=== PATIENT | female | born 1935 | race Caucasian/White ===

== ENCOUNTER 2017-10-31 12:00 | Inpatient (IN) | payer MEDICARE ==
--- NOTE | 2017-10-22 11:17 | HP ---
AMENDED REPORT NOW INCLUDES COSIGNER DESIGNATION - ESIGNED BEFORE ADJUSTMENT HISTORY AND PHYSICAL: DATE OF SURGERY: 10/31/17 DATE OF OFFICE VISIT: 10/21/17 SURGEON: Samantha oTro MD * (DICTATED BY BUTCH MCGOVERN) PROCEDURE: Left total knee arthroplasty. CHIEF COMPLAINT: Left knee pain. HISTORY OF PRESENT ILLNESS: Ms. Lara is an 82-year-old female with complaints of left knee pain secondary to end-stage osteoarthritis. She failed conservative management and elected to proceed with a left total knee arthroplasty, which is scheduled for 10/31/[address] Toro. PAST MEDICAL HISTORY: Hypertension, coronary artery disease, peripheral vascular disease, GERD, and hypothyroidism. PAST SURGICAL HISTORY: CABG, 2010; partial thyroidectomy; hiatal hernia repair ; right knee arthroscopy; cholecystectomy; hysterectomy; tonsillectomy. CURRENT MEDICATIONS: 1. Cartia 180 mg daily. 2. Metoprolol 50 mg twice a day. 3. Lisinopril 40 mg daily. 4. Levothyroxine 75 mcg daily. 5. Aspirin 81 mg daily. 6. Ibuprofen 200 mg as needed. 7. Omeprazole 40 mg twice a day. 8. 2 tabs every day. 9. Baclofen 10 mg 2 tabs q.h.s. 10. Multivitamin. 11. Fluticasone nasal spray. 12. Benadryl Allergy as needed. ALLERGIES: To CECLOR and AZITHROMYCIN. FAMILY HISTORY: Coronary artery disease, cancer, and hypertension. SOCIAL HISTORY: She is an 82-year-old female. She lives alone. She does not smoke or use drugs. She uses alcohol rarely. REVIEW OF SYSTEMS: A complete 14-point review of systems was reviewed with patient, it was positive for hypothyroidism, GERD, and some occasional palpitation. She denies history of DVT, PE, hepatitis, HIV, or anesthesia problems. PHYSICAL EXAMINATION GENERAL: She is well-developed, well-nourished, in no acute distress. VITAL SIGNS: She stands 5 feet 1 inch tall, weighs 165 pounds. Her blood pressure is 126/76, her heart rate is 62. HEENT: Normocephalic and atraumatic. NECK: Supple. No palpable lymph nodes. PULMONARY: Lungs are clear to auscultation bilaterally. CARDIO: Regular rate and rhythm. Strong S1 and S2. ABDOMEN: Soft, nontender, and nondistended. NEUROLOGICAL: She is alert and oriented x3. Cranial nerves II through XII are intact. MUSCULOSKELETAL: Left lower extremity, the skin is intact. There are no open wounds or abrasions. There is some moderate joint effusion. There is a varus deformity of the left knee. Range of motion is 15 to 110 degrees of flexion with patellofemoral crepitus. Tenderness over the medial and lateral joint line. 2+ dorsalis pedis pulses. She has intact sensation in her lower extremities. Muscle group strengths are intact at 5/5. ASSESSMENT AND PLAN: Ms. Lara is an 82-year-old female with end-stage osteoarthritis of her left knee. She has failed conservative management and elected to proceed with a left total knee arthroplasty which is scheduled for with Dr. Toro. Dr. Toro discussed the risks and benefits of the surgery at today's visit and all of her questions were answered. She will follow up with Dr. Toro in 2 weeks after the surgery. BUTCH MCGOVERN [id number]/[facility] #: [id number] BERYL
--- NOTE | 2017-12-16 21:55 | HP ---
HISTORY AND PHYSICAL: DATE OF ADMISSION/SURGERY: 12/27/17 DATE OF OFFICE VISIT: 12/16/17 ATTENDING SURGEON: Samantha Toro MD * (DICTATED BY BUTCH MCGOVERN) PROCEDURE: Left total knee arthroplasty. CHIEF COMPLAINT: Left knee pain. HISTORY OF PRESENT ILLNESS: Ms. Lara is an 82-year-old female with complaints of left knee pain secondary to end-stage osteoarthritis. She has failed conservative treatment and elected to proceed with a left total knee arthroplasty, which is scheduled for 12/27/[address] Toro. PAST MEDICAL HISTORY: Hypertension, AFib/aflutter, coronary artery disease, GERD, macular degeneration, hypothyroidism. PAST SURGICAL HISTORY: CABG, cholecystectomy, tubal ligation, hysterectomy, right knee arthroscopy, hernia surgery, and partial thyroidectomy. CURRENT MEDICATIONS: 1. Iron. 2. Cartia 180 mg daily. 3. Metoprolol 50 mg twice daily. 4. Lisinopril 40 mg daily. 5. Levothyroxine 75 mcg daily. 6. Aspirin 81 mg daily. 7. Ibuprofen as needed. 8. Omeprazole 40 mg twice a day. 9. . 10. Baclofen. 11. Multivitamin. 12. Fluticasone nasal spray. 13. Benadryl Allergy as needed. ALLERGIES: To CECLOR and AZITHROMYCIN. FAMILY HISTORY: Esophageal cancer, hypertension, breast cancer, and heart disease. SOCIAL HISTORY: She is an 82-year-old female. She lives alone. She does not smoke or use drugs. She uses rare alcohol. REVIEW OF SYSTEMS: A complete 14-point review of systems was reviewed with the patient. It is positive for hypothyroidism, GERD, shortness of breath, and occasional palpitation. She denies history of DVT, PE, hepatitis, HIV, or anesthesia problems. PHYSICAL EXAMINATION GENERAL: She is well developed, well nourished, in no acute distress. VITAL SIGNS: She stands 60 inches tall, weighs 162 pounds. Blood pressure is 152/76 and heart rate 66. HEENT: Normocephalic, atraumatic. NECK: Supple. No palpable lymph nodes. PULMONARY: Lungs are clear to auscultation bilaterally. CARDIO: Regular rate and rhythm. Strong S1, S2. ABDOMEN: Soft, nontender, nondistended. NEUROLOGICAL: She is alert and oriented x3. MUSCULOSKELETAL: Left lower extremity, the skin is intact. There are no open wounds or abrasions. She has moderate joint effusion and some tenderness over the mediolateral joint line. Range of motion 10 to 120 degrees with patellofemoral crepitus. 2+ dorsalis pedis pulses. Intact sensation. Her lower extremity muscle group strengths are intact at 5/5. ASSESSMENT AND PLAN: Ms. Lara is an 82-year-old female with complaints of left knee pain secondary to end-stage osteoarthritis. She has failed conservative management and elected to proceed with a left total knee arthroplasty, which is scheduled for 12/27/[address] Toro discussed the risks and the benefits of the surgery at today's visit. All of her questions were answered. She will follow up in 2 weeks after the surgery with Dr. Toro. BUTCH MCGOVERN [id number]/[facility] #: [id number] BERYL
[2017-12-26] MEDS ORDERED: Buffered Lidocaine 0.9% SYRIN* 5 ML/SYR SYRINGE INTRADERM ONE (10:33)
[2017-12-26] MEDS ORDERED: Ondansetron TAB* 4 MG PO ONE (10:33)
[2017-12-27] MEDS ORDERED: Naloxone* 0.4 MG/ML 1 ML VIAL IV PRN (05:56)
[2017-12-27] MEDS ORDERED: PROCHLORPERAZINE INJ 5 MG/ML 2 ML VIAL IV PRN (05:56)
[2017-12-27] MEDS ORDERED: fentaNYL* 50 MCG/ML 2 ML VIAL (100 MCG VIAL) IV PRN (05:56)
[2017-12-27] MEDS ORDERED: DiMENhydriNATE IV* 50 MG/ML VIAL IV PUSH PRN (05:56)
[2017-12-27] MEDS ORDERED: Gabapentin CAP(*) 300 MG PO ONE (06:00)
[2017-12-27] MEDS ORDERED: Dexamethasone TAB* 4 MG PO ONE (06:00)
[2017-12-27] MEDS ORDERED: Famotidine IV* 10 MG/ML 2 ML (20 mg) IV ONE (06:00)
--- OUTSIDE RECORDS SUMMARY | 2017-12-27 08:21 | XMS REPORT ---
:1935 External Reference #:[id number] Author Organization [facility] Address [address] [place] [address] [place] [address] Phone [phone] Care Team Providers Name Role Phone Saida Diego PA Primary Care Physician Unavailable Payers Type Date Identification Numbers Payment Provider Subscriber Health Maintenance Effective: Policy Number: [place] Vince Sorto [place] [place] 06/24/2013 [id number] o Group Number: [id number] [address] [address] PayID: [id number] [place] [address] Problems Date Description Provider Status Onset: 10/04/2017 [...] Description Comments Marital Status 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 needed for pain Cartia XT 05/14/ Active Caps ER 24HR [...] Capsules 25mg 1 at Unknown 0000 night Iron / Active Tablets 28mg Unknown 0000 Bactrim DS 10/22/ Hx Tablets 800-160mg 6tabs take 1 Samantha 2018 - by mouth Cortez, 10/23/ twice a M.D. 2018 day for 3 days Diltiazem HCL ER / Hx Caps ER [...] Indications Ordering Provider Inj, Administered Injection Carson D. Regadenoson, 018 Kirill Gillespie 0.1 MG Technetium TC Administered Injection Carson D. 99M 018 Kirill Gillespie Tetrofosmin, Per Unit Dose Up To 40 Millicuries Depomedrol Administered Injection Samantha 40MG 018 Kirill Toro Inj, Administered Injection Carson D. Regadenoson, 014 Kirill Gillespie 0.1 MG Technetium TC Administered Injection Carson D. 99M 014 Kirill Gillespie Tetrofosmin, Per Unit Dose Up To 40 Millicuries Vital Signs Date Vital Result Comment 12/16/2017 Height 60.75 inches 5'0.75" Weight 162.00 lb Heart Rate 66 /min BP Systolic Sitting 152 mmHg BP Diastolic Sitting 76 mmHg Respiratory Rate 16 /min Body Temperature 98.8 F Pain Level 4 BMI (Body Mass Index) 30.9 kg/m2 10/23/2017 Height 60.75 inches 5'0.75" Weight 162.00 [...] Color [place] Urine Appearance Cloudy Urine Specific [place] 1.016 1.010-1.030 Urine pH 6.0 5-9 Urine [...] JUN SORTO : [address]: Samantha Toro MD Acct: [id number] Unit: [id number] AGE: 82 Location: [facility] Re10/21/17 SEX: F Status: REG REF SPEC: [id number] KARUNA: 10/21/17-[address] [facility] [address]: Samantha Toro MD REQ: [id number] RECD: 10/21/17 STATUS: WOLF CLINE DR: Saida TORO _ SOURCE: URINE SPDESC: ORDERED: Urine Culture QUERIES: Urine Source: Clean Catch Procedure Result Reported Site Urine Culture Final 10/22/17- 1203 ML No Growth (<1,000 CFU/mL) * ML - Main Lab . END OF REPORT DEPARTMENT OF PATHOLOGY, [address] [place] [address] Sebastian Carvajal M.D. Director [facility] # [id number] 5 Reference Range and Interpretation: TnI (ng/mL) Interpretation Less Than 0.03 ng/mL Not supportive of diagnosis of VT 0.03 - 0.50 ng/mL Indeterminate: suggest serial studies if clinically indicated. Greater than 0.5 ng/mL Consistent with diagnosis of VT 6 Because ethnic data is not always [...] Procedures Date CPT Code Description Status 10/23/2017 19333 EKG Tracing & Interpretation Completed 10/18/2017 55113 Stress Test Completed 10/18/2017 13664 Myocardial Perfusion Imaging Tomographic (Spect) Completed Multiple Studies 10/04/2017 32777 Inject/Drain Joint/Bursa Major W/O US Completed 06/28/2017 66509 EKG Tracing & Interpretation Completed 07/04/2016 54946 EKG Tracing & Interpretation Completed 06/09/2015 97479 EKG Tracing & Interpretation Completed 04/01/2015 19279 Nerve Conduction 03-04 Studies Completed 04/01/2015 91899 Needle Electromyography Complete, Five Or More Muscles Completed Studied 08/01/2014 54827 ECHO Transthorasic Realtime 2D W Doppler & Color Flow Completed Hosp 08/01/2014 83377 EKG, Interpretation Only Completed 02/03/2014 Mammogram Completed 10/21/2013 07620 Stress Test Completed 10/21/2013 70808 Myocardial Perfusion Imaging Tomographic (Spect) Completed Multiple Studies 10/12/2013 12391 ECHO Transthoracic, Real-Time 2D With Doppler And Color Completed Flow 10/02/2013 55911 EKG Tracing & Interpretation Completed Encounters Type Date Location Provider CPT E/M Dx Office Visit 10/23/2017 [facility] Carson ConleyAlfa Gillespie, 39438 I25.10 9:30a Ruthie Porter.Yoko R94.31 I48.0 Z01.810 M17.12 Office Visit 10/04/2017 9:15a [facility] Samantha Toro M.D. 37242 M25.561 C.M.Malgorzata M25.562 M25.461 M25.462 M17.0 Office Visit 06/28/2017 12:00p [facility] Carson YaelAlfa Gillespie, 46095 I25.10 Ruthie Porter.Yoko I10 R94.31 Office Visit 07/04/2016 10:00a [facility] Carsonever Gillespie, 16167 I25.10 Ruthie Roy R94.31 Office Visit 06/09/2015 9:45a [facility] Carson Gillespie, 48619 I25.10 Ruthie Roy I10 R94.31 Office Visit 08/01/2014 7:09a [facility], Manuel Garsia 19849 786.52 Hospitalists Kirill Ervin 414.00 244.9 401.9 Office Visit 06/16/2014 11:15a [facility] Carson YaelAlfa Gillespie, 54024 414.01 Ruthie Roy 785.1 414.02 Office Visit 10/30/2013 9:00a [facility] Carsonever Gillespie, 98037 414.01 Ruthie Roy 785.1 414.02 Office Visit 10/02/2013 9:00a [facility] Carsonever Gillespie, 51072 401.1 Ruthie Roy 414.01 414.02 427.31 Plan of Care Future Appointment(s):01/10/2018 9:00 am - BUTCH Gomez at [facility]02/05/2018 10:45 am - Carson Gillespie M.D. at [facility]12/27/2017 10:30 am - Samantha Toro M.D. at [facility]12/16/2017 - Samantha Toro M.D.M25.562 Pain in left kneeFollow up:Follow up: 2 weeks after jhachqrK49.462 Effusion, left kneeM17.12 Unilateral primary osteoarthritis, left knee
[2017-12-27] MEDS ORDERED: Famotidine IV* 10 MG/ML 2 ML (20 mg) ONE (08:38)
[2017-12-27] MEDS ORDERED: Dexamethasone TAB* 4 MG ONE (08:39)
[2017-12-27] MEDS ORDERED: Tranexamic Acid 1,000 MG/10 ML SDV IV ONE (08:39)
[2017-12-27] MEDS ORDERED: Ondansetron ODT TAB* 4 MG ONE (08:39)
[2017-12-27] MEDS ORDERED: Gabapentin CAP(*) 300 MG ONE (08:39)
[2017-12-27] MEDS ORDERED: ceFAZolin 2 GM PREMIX (*) 2 GM/50 ML BAG IVPB ONE (08:40)
[2017-12-27] MEDS ORDERED: Buffered Lidocaine 0.9% SYRIN* 5 ML/SYR SYRINGE ONE (08:40)
[2017-12-27] MEDS ORDERED: KETAMINE HCL* 50 MG/ML 10 ML VIAL ONE (09:37)
[2017-12-27] MEDS ORDERED: fentaNYL* 50 MCG/ML 2 ML VIAL (100 MCG VIAL) ONE (09:37)
[2017-12-27] MEDS ORDERED: Midazolam* 1 MG/ML 5 ML VIAL (5 MG) ONE (09:38)
[2017-12-27] MEDS ORDERED: Propofol* 1,000 MG/100 ML BTL ONE (12:31)
[2017-12-27] MEDS ORDERED: Bupivacaine 0.5% PF 10 ML VIAL INJ ONE (12:31)
[2017-12-27] MEDS ORDERED: Phenylephrine INJ* 10 MG/ML 1 ML VIAL (10 MG) ONE (12:31)
[2017-12-27] MEDS ORDERED: Bisacodyl SUPP* 10 MG SUPP PR PRN (12:39)
[2017-12-27] MEDS ORDERED: Magnesium Hydroxide LIQ* 30 ML UDC PO PRN (12:39)
[2017-12-27] MEDS ORDERED: Morphine VIAL* 4 MG/ML VIAL (1 ml vial) IV PRN (12:39)
[2017-12-27] MEDS ORDERED: Polyethylene Glycol 3350* 17 GM PACKET PO PRN (12:39)
[2017-12-27] MEDS ORDERED: Ondansetron TAB* 4 MG PO PRN (12:39)
[2017-12-27] MEDS ORDERED: oxyCODONE/Acetamin 5/325 MG* TAB PO PRN ×2 (12:39)
[2017-12-27] MEDS ORDERED: diPHENhydraMINE IV* 50 MG/ML 1 ml VIAL (BENADRYL) IV PRN (12:39)
[2017-12-27] MEDS ORDERED: oxyCODONE TAB* 5 MG TAB PO PRN (12:39)
[2017-12-27] MEDS ORDERED: Ondansetron ODT TAB* 4 MG PO PRN (12:39)
[2017-12-27] MEDS ORDERED: Morphine VIAL* 10 MG/ML 1 ML VIAL ONE (13:04)
[2017-12-27] MEDS: Morphine INJ* 2 MG/ML 1 ML CARPUJECT IV PRN ×3 (13:06→13:41)
--- NOTE | 2017-12-27 13:12 | RAD ---
Indication: Postop LEFT total knee replacement. Comparison: October 04, 2017 Technique: LEFT knee: AP and crosstable lateral views. Report: Total knee prosthesis in place. No evidence for periprosthetic fracture. Normal articular alignment. Intra-articular and soft tissue plane edema and gas anteriorly. IMPRESSION: #. Unremarkable immediate postop appearance following LEFT total knee replacement.
[2017-12-27] MEDS ORDERED: traMADol TAB* 50 MG ONE (13:52)
[2017-12-27] MEDS ORDERED: traMADol TAB* 50 MG PO PRN (14:03)
[2017-12-27] MEDS ORDERED: DiMENhydriNATE IV* 50 MG/ML VIAL ONE (14:07)
[2017-12-27] MEDS: Cyclobenzaprine TAB* 10 MG PO PRN (14:49)
[2017-12-27] MEDS: HYDROcodone/ACETAMIN 5-325 MG* 1 TAB PO PRN ×3 (15:53→23:59)
[2017-12-27] MEDS ORDERED: Warfarin TAB(*) 6 MG PO ONE (17:00)
[2017-12-27] MEDS: ceFAZolin 1 GM in Dextrose (*) 1 GM/50 ML BAG IVPB SCH (19:24)
[2017-12-27] MEDS: Metoprolol Tartrate TAB* 50 mg PO SCH (20:18)
[2017-12-27] MEDS: Magnesium Hydroxide LIQ* 30 ML UDC PO SCH (20:18)
[2017-12-27] MEDS: Docusate CAP* 100 MG PO SCH (20:18)
[2017-12-27] MEDS ORDERED: Omeprazole CAP* 20 MG PO SCH (21:00)
[2017-12-27] MEDS ORDERED: Metoprolol Tartrate TAB* 50 mg PO SCH (21:00)
--- NOTE | 2017-12-27 21:25 | CONS ---
CC: BUTCH Hogue; Samantha Toro MD * CONSULTATION REPORT: DATE OF CONSULT: 12/27/17 PRIMARY CARE PROVIDER: BUTCH Hogue PHYSICIAN REQUESTING CONSULTATION: Samantha Toro MD ATTENDING PHYSICIAN: Skye Moser MD (dictated by Claudia Rajan NP). CHIEF COMPLAINT: Left knee pain. REASON FOR CONSULT: Co-medical management in a patient with a history of hypertension; paroxysmal atrial fibrillation; peripheral vascular disease; coronary artery disease, status post coronary artery bypass graft. HISTORY OF PRESENT ILLNESS: Ms. Lara is an 82-year-old female with past medical history significant for hypertension; paroxysmal atrial fibrillation; coronary artery disease, status post coronary artery bypass graft; GERD; macular degeneration; hypothyroidism; osteoarthritis; peripheral vascular disease; anemia; diverticulitis; and end-stage osteoarthritis who presented to the hospital for an elective left total knee arthroplasty with Dr. Samantha Toro today. The patient states that she has been in her usual state of health other than left knee pain prior to coming to the hospital. She denies any recent fevers, chills, chest pain, shortness of breath, nausea, vomiting, or diarrhea. She states she has recently had some dizziness and was diagnosed with anemia and that has resolved. The patient had failed conservative treatment for her left knee and again underwent left total knee arthroplasty with Dr. Toro today. The hospitalists were asked to assist with co-medical management of this patient during her hospitalization. PAST MEDICAL HISTORY: 1. Hypertension. 2. Paroxysmal atrial fibrillation. 3. Coronary artery disease. 4. GERD. 5. Macular degeneration. 6. Glaucoma. 7. Hypothyroidism. 8. Osteoarthritis. 9. Peripheral vascular disease. 10. Anemia. 11. Diverticulosis. PAST SURGICAL HISTORY: 1. Status post coronary artery bypass graft. 2. Status post cholecystectomy. 3. Status post tubal ligation. 4. Status post total abdominal hysterectomy with bilateral salpingo- oophorectomy. 5. Status post right total knee arthroscopy. 6. Status post hernia repair. 7. Status post Danilo fundoplication. 8. Status post right lobe thyroidectomy. HOME MEDICATIONS: Include: 1. Feosol 325 mg oral daily. 2. Cartia XT 180 mg oral daily. 3. Metoprolol tartrate 50 mg oral twice daily. 4. Lisinopril 40 mg oral daily. 5. Levothyroxine 75 mcg oral daily. 6. Aspirin 81 mg oral daily. 7. Ibuprofen 400 to 800 mg oral as needed for pain, the patient has not taken since 10/23/17. 8. Omeprazole 40 mg oral twice daily. 9. Savision 2 tablets oral daily. 10. Baclofen 20 mg oral daily at bedtime. 11. Multivitamin 1 tablet oral daily. 12. Fluticasone nasal spray 50 mcg/ACT 2 sprays to each nares daily. 13. Benadryl Allergy 25 mg oral daily at bedtime as needed. ALLERGIES: 1. CECLOR, unknown reaction. 2. AZITHROMYCIN, shortness of breath and heart arrhythmia. 3. SULFA, diarrhea and heart arrhythmia. FAMILY HISTORY: The patient's father passed at age 56 from esophageal cancer. She had a brother who passed at age 64 from esophageal cancer, a brother passing at age 72 from esophageal and lung cancer, and a sister who passed at 74 from esophageal cancer. The patient's mother had a history of breast cancer and heart disease and passed at age 72 secondary to pneumonia. The patient had a sister who passed from breast cancer at age 57. She has a son with history of an CT. SOCIAL HISTORY: The patient is a former smoker, quitting over 30 years ago. She states that she did not have a long smoking history prior to that. She rarely drinks alcohol. Denies recreational drug use. She lives alone. Her daughter, Cornelia Mccauley, will be her surrogate decision maker in the event she is unable to make decisions for herself. REVIEW OF SYSTEMS: I performed an 11-point review of systems. All the pertinent positive and negatives are mentioned in the history of present illness. The remaining review of systems are negative. PHYSICAL EXAM: Vital Signs: Temperature 98.2, heart rate 84, respiratory rate 16, O2 sat 96% on room air, blood pressure 158/83. General Appearance: The patient is alert, pleasant, and appears to be in no acute distress. HEENT: Normocephalic, atraumatic. Pupils are equal and reactive to light. Extraocular movements are intact. Respiratory: There is no accessory muscle use. The lungs are clear to auscultation bilaterally. Cardiovascular: Regular rate and rhythm. S1, S2 present. There are no murmurs, rubs, or gallops heard. Abdomen: Soft, nontender, nondistended. There are bowel sounds present x4. Extremities: There is no lower extremity edema. DP and PT pulses are 2+ and symmetric. Musculoskeletal: There is no clubbing or cyanosis noted. The patient exhibits good strength in all extremities. Neurological: The patient is alert and oriented x4. Cranial nerves II through XII are grossly intact. Psychological: The patient is calm and cooperative. Skin: There are no rashes or abnormalities seen. The patient has a dressing to her left knee that is clean, dry and intact. DIAGNOSTIC STUDIES/LAB DATA: Preoperative labs from 11/26/17 show a white blood cell count of 12.2, hemoglobin 11.5, hematocrit 36, platelet count 401, 000. Labs from 12/17/17; sodium 138, potassium 5.1, chloride 100, CO2 of 29, BUN 7, creatinine 0.68. Urinalysis negative. IMPRESSION: Ms. Lara is an 82-year-old female with past medical history significant for hypertension, paroxysmal atrial fibrillation, coronary artery disease, gastroesophageal reflux disease, macular degeneration, hypothyroidism, osteoarthritis, peripheral vascular disease, anemia, diverticulosis and osteoarthritis, who presented to the hospital for an elective left total knee arthroplasty with Dr. Samantha Toro. ASSESSMENT/PLAN: 1. Status post left total knee arthroplasty. Postop day. Management will be per Orthopedic Surgery. The patient will be placed on a bowel regimen and have pain medications. She will have physical therapy and occupational therapy evaluations tomorrow. She has already gotten up to a chair. She will have her urinary catheter in place until the morning, at which time it will be removed. 2. Paroxysmal atrial fibrillation. The patient's heart rate is regular by auscultation at this time. She is not chronically anticoagulated for this. She will be continued on her home diltiazem and metoprolol. 3. History of coronary artery disease. The patient has a history of coronary artery bypass graft. She will be continued on her home metoprolol. Resume her aspirin with okay with Orthopedic Surgery. She is not currently on a statin. She is asymptomatic at this time. 4. Gastroesophageal reflux disease. The patient will be continued on her home omeprazole. 5. Macular degeneration and glaucoma. The patient will continue to follow with her dye reel operator helper. 6. Hypothyroidism. The patient will be continued on her home levothyroxine. Her last TSH was 2.32 on 11/21/17. 7. Anemia. We will continue to trend the patient's H and H. I suspect she will have acute blood loss anemia in addition to her iron-deficiency anemia. She will be continued on her home iron. 8. Hypertension. The patient is currently slightly hypertensive with systolic blood pressures in the 150s. She will be continued on her home diltiazem, metoprolol, and resume her lisinopril in the morning. 9. Fluids, electrolytes, and nutrition: The patient will be on a heart- healthy diet. 10. Code status: Full code. 11. DVT prophylaxis: The patient will have Lovenox bridged to warfarin and SCDs per Orthopedic Surgery. 12. Disposition: Inpatient with disposition per Orthopedic Surgery. TIME SPENT: Time for this consultation was approximately 60 minutes, greater than half of that was spent with the patient discussing medications, past medical history, the events leading up to her arrival today, and performing a physical examination. Case has been reviewed with the attending, Dr. Moser, who agrees with the plan of care. Reviewed by DONALD STEPHEN 12/30/17 1825 [id number]/[facility] #: [id number] BERYL
--- NOTE | 2017-12-28 02:00 | OP ---
OPERATIVE REPORT: DATE OF OPERATION: 12/27/17 DATE OF : 39 SURGEON: Samantha Toro MD CEMENTER MACHINE APPLICATOR: BUTCH Hilton Ms. did help throughout the procedure with preparation of the leg, wound retraction, manipul ation of the knee, and wound closure. ANESTHESIOLOGIST: Dr. Spencer. ANESTHESIA: Spinal. PRE-OP DIAGNOSIS: Severe end-stage degenerative osteoarthritis of the left knee joint with flexion c ontracture. POST-OP DIAGNOSIS: Severe end-stage degenerative osteoarthritis of the left knee joint with flexion contracture. OPERATIVE PROCEDURE: Left total knee arthroplasty. BRIEF HISTORY/INDICATION: Ms. Lara is an 82-year-old female with years of increasingly severe left knee pain. Radiographs showed severe [id number]-[id number] arthritis. The patient had developed a 20-degree flexion contracture. She failed conservative treatment with anti-inflammatories, pain medication, in traarticular injections, and physical therapy. Due to continued pain and decreased quality of life, she elected to undergo a left total knee arthroplasty. Informed consent was obtained from the patien t. She understood the risks of surgery included, but were not limited to bleeding, infection, damage to nearby structures, continued pain, need for further surgery, intraoperative fracture, nerve palsy , hardware failure or loosening, knee stiffness, loss of motion, stroke, heart attack, blood clot, an d . She wished to proceed. INTRAOPERATIVE FINDINGS: Intraoperatively, the patient was noted to have severe osteopenia. She had advanced arthritis with 20-degree flexion contracture and tight hamstrings. She had a severe varus deformity of the knee. There was tricompartmental full-thickness loss of cartilage in the knee. TOURNIQUET TIME: 47 minutes. COMPLICATIONS: None. SPECIMENS: Bone and cartilage from the left knee joint sent to Pathology. HARDWARE USED: This is cemented [employer] total knee arthroplasty hardware. Two packages of S implex bone cement were used. For the femur, a left size 5 left posterior stabilized Legion narrow f emoral component; for the tibia, a left size 3 left Francisca II tibial base plate; for the insert, a 9 mm posterior stabilized articular insert size 3-4; and for the patella, 32 mm 3-peg all-poly patella with 7.5 thickness. DESCRIPTION OF PROCEDURE: Ms. Lara was identified in the preanesthesia unit. Her left lower extrem ity was marked as the correct operative side. Informed consent was signed and placed in the chart. The patient was taken to the operating room and placed under spinal anesthesia. A Silver catheter was placed. Tourniquet was placed on the left thigh. Left lower extremity was prepped and draped in th e usual sterile fashion. Preop time-out was made to correctly identify the patient, side and site. Appropriate perioperative antibiotics were given within 1 hour of incision. Tourniquet was inflated and total tourniquet time for this procedure was 47 minutes. A 12 cm midline incision was made with a 10-blade and carried down to the extensor mechanism. A new 10-blade was us ed to make a standard medial parapatellar arthrotomy and the patella was subluxed laterally. Electro cautery was used to elevate soft tissue off the superomedial tibia to the mid sagittal plane. The kn ee was flexed up. The anterior horn of the lateral meniscus and ACL were sharply released. A drill was used to enter the distal femur. Intramedullary distal femoral cutting guide was pinned on the di stal femur. Oscillating saw was used to make the distal femoral cut and additional 2 mm were taken d ue to the chronic 20- degree flexion contracture. Next, the external rotation guide was pinned on th e distal femur. Distal femur was sized to a size 5. Size 5 multi-cutting jig was pinned on the dist al femur. Oscillating saw was used to make the appropriate 4 chamfer cuts. The PCL was completely r eleased. The tibia was subluxed anteriorly. Extramedullary tibial cutting guide was pinned on the pr oximal tibia. Oscillating saw was used to make the proximal tibial cut perpendicular to the laboratory mechanical technician al axis of the tibia. The bone was carefully removed. The knee was brought out into full extension. Spacer block had good fit with the knee in full extens ion. There was medial and lateral ligamentous balancing. Flexion and extension gaps were well balanc ed. Next, the knee was flexed up. Lamina heel seater was placed both medially and laterally. Any remai anselmo meniscus was carefully removed both medially and laterally using electrocautery. Curved osteoto me was used to remove any posterior osteophytes. Tibial tray and drop sandra were placed and once again confirmed a satisfactory tibial cut. A trial left 5 narrow femur was impacted on to the distal femur and had good fit. The box for the pos terior stabilized implant was prepared using a reamer and box cut osteotome. Size 3 tibial tray with a 9 mm insert trial was placed and the knee was taken through a range of motion. There was full ext ension to 130 degrees of flexion with good patellofemoral tracking. The patella was everted. 7 mm o f patellar bone and cartilage was carefully removed using an oscillating saw. The patella was sized to a size 32. Three pegs were drilled through the size 32 guide. Trial 32 patella was placed. The k nee was taken through a range of motion and there was satisfactory patellofemoral tracking. All trials were carefully removed. Tibia was subluxed anteriorly and sized to a size 3. Proximal ti eduard was prepared using a size 3 keel punch. All bony cut surfaces were copiously irrigated with ster ile saline and dried. Final implants were cemented into place starting with the tibia followed by th e femur and last the patella. A 9 mm insert trial was placed while the knee was brought out into ful l extension. The knee was copiously irrigated with sterile saline and tourniquet was turned down at 47 minutes. Electrocautery was used to obtain meticulous hemostasis. Once the cement had fully cure d, the insert trial was removed. Any excess cement was removed from around the capsule and hardware. Final insert chosen was a 9 mm posterior stabilized articular insert Francisca II size 3-4. This was locked into position on the tibial tray. Stability of the insert was checked and rechecked and note d to be stable. The knee was once again copiously irrigated with sterile saline. The extensor mechanism was closed u sing interrupted #1 Vicryl. The rest of the incision was closed in a layered fashion using 0 and 2-0 Vicryls. Skin was closed using running 3-0 nylon suture. Sterile Xeroform, 4x4s, and Webril were u sed to cover the incision. Rod wrap and cold pack were placed over this. The patient's anesthesia w as reversed without difficulty. She was taken to the PACU in stable condition. Intended weightbearin g will be weightbearing as tolerated. Intended DVT prophylaxis will be Coumadin with a Lovenox bridg e. [id number]/[facility] #: [id number]
[2017-12-28] MEDS: Cyclobenzaprine TAB* 10 MG PO PRN ×2 (02:39→12:25)
[2017-12-28] MEDS: ceFAZolin 1 GM in Dextrose (*) 1 GM/50 ML BAG IVPB SCH ×2 (02:40→10:17)
[2017-12-28 05:49] LABS: Hematocrit 35 % (35-47); Hemoglobin 11.2 g/dl (12.0-16.0); Mean Platelet Volume 7.7 um3 (7.4-10.4); Platelet Count 350 10^3/ul (150-450)
[2017-12-28] MEDS: Levothyroxine TAB* 75 MCG TAB PO SCH (05:52)
[2017-12-28] MEDS: HYDROcodone/ACETAMIN 5-325 MG* 1 TAB PO PRN ×3 (06:02→17:14)
[2017-12-28 06:12] LABS: INR 2.64 (0.77-1.02)
[2017-12-28 06:20] LABS: EGFR Non-African American 130.7 (>60)
[2017-12-28] MEDS: Metoprolol Tartrate TAB* 50 mg PO SCH ×2 (08:46→21:49)
[2017-12-28] MEDS: Omeprazole CAP* 20 MG PO SCH ×2 (08:46→17:13)
[2017-12-28] MEDS: Ferrous Sulfate TAB* 325 MG PO SCH (08:46)
[2017-12-28] MEDS: Diltiazem CD CAP* 180 MG PO SCH (08:46)
[2017-12-28] MEDS: Docusate CAP* 100 MG PO SCH ×2 (08:46→21:49)
[2017-12-28] MEDS: Lisinopril TAB* 10 MG PO SCH (08:47)
[2017-12-28] MEDS: Fluticasone NASAL SPRAY 50MCG* 16 gm SPRAY BTL BOTH NARES SCH (08:47)
[2017-12-28] MEDS: [UNRECOGNIZED DRUG - OTHER] PO SCH (08:48)
[2017-12-28] MEDS: Magnesium Hydroxide LIQ* 30 ML UDC PO SCH ×2 (08:49→21:48)
[2017-12-28] MEDS ORDERED: Enoxaparin(*) 30 MG/0.3 ML SYR SUBCUT SCH (12:00)
--- NOTE | 2017-12-28 13:17 | PN ---
Progress Note - Progress Note Date of Service: 12/28/17 SOAP: Subjective: Pt is doing well. Pain controlled with oral pain meds. Progressing well with PT. Denies N/T, F/C, CP/SOB Objective: PE- 82 y/o WDWN F NAD, A&O x3 LLE- dressing c/d/i, calf soft NT, +DF/PF ankle, +2 Dp pulse, SILT distally Vital Signs Temp Pulse Resp BP Pulse Ox 98.0 F 84 16 143/72 90 12/28/17 07:40 12/28/17 07:40 12/28/17 12:25 12/28/17 07:40 12/28/17 09:00 Laboratory Results - last 24 hr 12/28/17 12/28/17 12/28/17 05:06 05:06 05:06 Hgb 11.2 L Hct 35 Plt Count 350 MPV 7.7 INR (Anticoag Therapy) 2.64 H Sodium 131 L Potassium 3.5 Chloride 96 L Carbon Dioxide 27 Anion Gap 8 BUN 5 L Creatinine 0.46 L Est GFR ( Amer) 158.2 Est GFR (Non-Af Amer) 130.7 BUN/Creatinine Ratio 10.9 Glucose 140 H Calcium 8.8 Assessment: POD1 S/P Left TKA Plan: WBAT LLE- cont PT/OT cont pain mgmt INR therapeutic- DC lovenox, hold coumadin tonight Possible DC to home saturday
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
[2017-12-29] MEDS: HYDROcodone/ACETAMIN 5-325 MG* 1 TAB PO PRN ×3 (03:12→18:59)
[2017-12-29 05:48] LABS: Hematocrit 35 % (35-47); Hemoglobin 11.4 g/dl (12.0-16.0); Mean Platelet Volume 7.5 um3 (7.4-10.4); Platelet Count 342 10^3/ul (150-450)
[2017-12-29 05:59] LABS: INR 1.48 (0.77-1.02)
[2017-12-29] MEDS: Levothyroxine TAB* 75 MCG TAB PO SCH (06:45)
[2017-12-29] MEDS: Lisinopril TAB* 10 MG PO SCH (08:45)
[2017-12-29] MEDS: Magnesium Hydroxide LIQ* 30 ML UDC PO SCH ×2 (08:45→21:20)
[2017-12-29] MEDS: Ferrous Sulfate TAB* 325 MG PO SCH (08:45)
[2017-12-29] MEDS: Diltiazem CD CAP* 180 MG PO SCH (08:45)
[2017-12-29] MEDS: Omeprazole CAP* 20 MG PO SCH ×2 (08:45→16:34)
[2017-12-29] MEDS: Metoprolol Tartrate TAB* 50 mg PO SCH ×2 (08:45→21:19)
[2017-12-29] MEDS: Docusate CAP* 100 MG PO SCH ×2 (08:45→21:20)
[2017-12-29] MEDS: Fluticasone NASAL SPRAY 50MCG* 16 gm SPRAY BTL BOTH NARES SCH (08:45)
[2017-12-29] MEDS: [UNRECOGNIZED DRUG - OTHER] PO SCH (09:46)
--- NOTE | 2017-12-29 11:30 | PN ---
Progress Note - Progress Note Date of Service: 12/29/17 SOAP: Subjective: Pt is doing well. Pain is controlled. Progressing well with PT. Denies CP/SOB , F/C or calf pain Objective: PE- 82 y/o WDWN F NAD A&O x 3 LLE- dressing changed, inc c/d/i, +DF/PF ankle, calf soft NT, +2 DP pulse, SILT distally Vital Signs Temp Pulse Resp BP Pulse Ox 98.1 F 67 18 139/45 95 12/29/17 08:07 12/29/17 08:43 12/29/17 11:05 12/29/17 08:07 12/29/17 08:07 Laboratory Results - last 24 hr 12/29/17 12/29/17 05:36 05:36 Hgb 11.4 L Hct 35 Plt Count 342 MPV 7.5 INR (Anticoag Therapy) 1.48 H Assessment: POD2 S/P Left TKA Plan: WBAT LLE- cont PT/OT cont pain mgmt Dvt prophylaxis with Coumadin- 6 mg tonight Possible DC to home with VNS saturday
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
[2017-12-29] MEDS: Acetaminophen TAB* 325 MG PO PRN (14:48)
[2017-12-29] MEDS ORDERED: Warfarin TAB(*) 6 MG PO SCH (17:00)
[2017-12-30] MEDS: HYDROcodone/ACETAMIN 5-325 MG* 1 TAB PO PRN ×3 (00:08→13:31)
[2017-12-30] MEDS: Levothyroxine TAB* 75 MCG TAB PO SCH (06:32)
[2017-12-30 06:50] LABS: Hematocrit 36 % (35-47); Hemoglobin 11.6 g/dl (12.0-16.0); Mean Platelet Volume 7.8 um3 (7.4-10.4); Platelet Count 378 10^3/ul (150-450)
[2017-12-30 06:56] LABS: INR 1.57 (0.77-1.02)
[2017-12-30] MEDS: Omeprazole CAP* 20 MG PO SCH (08:09)
[2017-12-30] MEDS: Docusate CAP* 100 MG PO SCH (08:10)
[2017-12-30] MEDS: Lisinopril TAB* 10 MG PO SCH (08:10)
[2017-12-30] MEDS: Metoprolol Tartrate TAB* 50 mg PO SCH (08:10)
[2017-12-30] MEDS: Fluticasone NASAL SPRAY 50MCG* 16 gm SPRAY BTL BOTH NARES SCH (08:11)
[2017-12-30] MEDS: Ferrous Sulfate TAB* 325 MG PO SCH (08:11)
[2017-12-30] MEDS: Diltiazem CD CAP* 180 MG PO SCH (08:12)
[2017-12-30] MEDS: Magnesium Hydroxide LIQ* 30 ML UDC PO SCH (08:12)
--- NOTE | 2017-12-30 09:28 | PN ---
Progress Note - Progress Note Date of Service: 12/30/17 SOAP: Subjective: [] Patient seen at bedside. She is feeling very well and ready for discharge. Denies chest pain, shortness of breath, dizziness or nausea. Objective: []General: Well appearing, NAD LLE:Dressing changed, incision CDI. Thigh soft. DF/PF intact. Sensation intact distally. DP2+, capillary refill less than two seconds distally. Assessment: []POD 3 S/P Left TKA Plan: WBAT LLE PT/OT cont pain mgmt Dvt prophylaxis with Coumadin 4 mg tonight DC home today Vital Signs Temp 98.4 F 12/30/17 07:14 Pulse 77 12/30/17 07:14 Resp 18 12/30/17 08:12 BP 153/55 12/30/17 07:14 Pulse Ox 97 12/30/17 07:14 Intake & Output 12/29/17 12/30/17 12/30/17 18:59 06:59 18:59 Intake Total 710 600 240 Output Total 700 250 100 Balance 10 350 140 Intake: Oral 710 600 240 Output: Urine 700 250 100 Other: Estimated Void Medium Date of Last Bowel 12/30/17 12/30/17 Movement # Bowel Movements 1 Estimated Stool Amount Medium Medium Laboratory Last Values Hgb 11.6 g/dl (12.0-16.0) L 12/30/17 06:26 Hct 36 % (35-47) 12/30/17 06:26 Plt Count 378 10^3/ul (150-450) 12/30/17 06:26 MPV 7.8 um3 (7.4-10.4) 12/30/17 06:26 INR (Anticoag Therapy) 1.57 (0.77-1.02) H 12/30/17 06:26 Sodium 131 mmol/L (135-145) L 12/28/17 05:06 Potassium 3.5 mmol/L (3.5-5.0) 12/28/17 05:06 Chloride 96 mmol/L (101-111) L 12/28/17 05:06 Carbon Dioxide 27 mmol/L (22-32) 12/28/17 05:06 Anion Gap 8 mmol/L (2-11) 12/28/17 05:06 BUN 5 mg/dL (6-24) L 12/28/17 05:06 Creatinine 0.46 mg/dL (0.51-0.95) L 12/28/17 05:06 Est GFR ( Amer) 158.2 (>60) 12/28/17 05:06 Est GFR (Non-Af Amer) 130.7 (>60) 12/28/17 05:06 BUN/Creatinine Ratio 10.9 (8-20) 12/28/17 05:06 Glucose 140 mg/dL (70-100) H 12/28/17 05:06 Calcium 8.8 mg/dL (8.6-10.3) 12/28/17 05:06
[2017-12-30] MEDS: [UNRECOGNIZED DRUG - OTHER] PO SCH (11:08)
[2017-12-30] MEDS: Acetaminophen TAB* 325 MG PO PRN (11:16)
[2017-12-30 11:55] VITALS: BP 131/57
--- NOTE | 2017-12-31 08:55 | DS ---
AMENDED REPORT NOW INCLUDES COSIGNER DESIGNATION - ESIGNED BEFORE ADJUSTMENTS DISCHARGE SUMMARY: DATE OF ADMISSION: 12/27/17 DATE OF DISCHARGE: PROVIDER: Dr. Samantha Toro.* (DICTATED BY BUTCH DRAKE) CADDIE: BUTCH Hilton PRE-OP DIAGNOSIS: Severe end-stage degenerative osteoarthritis of the left knee with flexion contracture. OPERATIVE PROCEDURE: Left total knee arthroplasty. HISTORY: Ms. Lara is an 82-year-old female with years of increasingly severe left knee pain. She failed conservative treatment and has elected to undergo a left total knee arthroplasty. HOSPITAL COURSE: The patient was admitted to [facility] on . She underwent a left total knee arthroplasty without complication. She recovered briefly in the PACU and was taken to the short-stay surgical unit in stable condition. During the stay, she was followed by our hospitalist service , Orthopedics, Physical Therapy, and Occupational Therapy. On postop day 1, the patient was well-appearing in no acute distress. Dressing clean, dry, and intact. Calf is soft and nontender. Dorsiflexion and plantarflexion intact. 2 + dorsalis pedis pulse. Sensation intact to light touch distally. Postop day 2 , dressing was changed, incision clean, dry, and intact. Postop day 3, she was well-appearing, in no acute distress. Her dressing was again changed; incision clean, dry, and intact. Thigh was soft. Dorsiflexion and plantarflexion intact. Sensation intact distally, 2+ dorsalis pedis pulse. Capillary refill less than 2 seconds distally. The patient was deemed to be medically and orthopedically stable for discharge home. LABORATORY STUDIES: On the day of discharge, 12/30/17: Hemoglobin 11.6, hematocrit 36. INR 1.57. Sodium 131, last measured 12/28/17. DISCHARGE MEDICATIONS: 1. Benadryl 25 mg p.o. at bedtime p.r.n. 2. Aspirin 81 mg p.o. q.a.m. 3. Nitroglycerin 0.4 mg sublingually p.r.n. 4. Levothyroxine 75 mcg p.o. q.a.m. 5. Multivitamin. 6. Diltiazem 180 mg p.o. q.a.m. 7. Flonase nasal spray 2 sprays both nares q.a.m. 8. Metoprolol 50 mg p.o. b.i.d. The patient may discontinue ibuprofen at home. 9. Savision 2 tabs p.o. q.a.m. 10. Omeprazole 40 mg p.o. b.i.d. 11. Lovastatin 20 mg p.o. q.a.m. 12. Lisinopril 40 mg p.o. q.a.m. 13. Baclofen 20 mg p.o. at bedtime p.r.n. 14. Diltiazem 180 mg p.o. q.a.m. 15. Metoprolol 50 mg p.o. b.i.d. 16. Omeprazole 40 mg p.o. b.i.d. 17. Ferrous sulfate 325 mg p.o. daily. 18. [place] 5/325 one to two tabs every 4 to 6 hours p.r.n. max daily dose of 10. 19. Warfarin 2 mg tabs 1 to 3 tabs daily depending on INR dose. DISCHARGE PLAN: Weightbearing as tolerated. Okay to shower on postop day 3. Coumadin, last INR on 12/30/17 was 1.57; dosing will be as follows: 12/30/17 - 4 mg, 12/31/17 - 2 mg, 01/01/18 - 2 mg. Recheck INR on 01/02/18. Pain control with [place] 5/325 mg 1 to 2 tabs by mouth every 4 to 6 hours as needed for pain, max of 10 tabs per day. Followup with Dr. Toro in 10 to 14 days. BUTCH DRAKE [id number]/[facility] #: [id number] [facility]
== END 2017-12-30 13:35 | disposition home health service (06) | DRG 470 ==
LOC: AA 12-27 08:15 → SSU 12-27 14:19
PROVIDERS: ADMIT Orthopaedic Surgery Adult Reconstructive Orthopaedic Surgery; ATTEND Orthopaedic Surgery Adult Reconstructive Orthopaedic Surgery
PROC: 0SRD0J9 Replacement of Left Knee Joint with Synthetic Substitute, Cemented, Open Approach (ICD-10-PCS; principal; 2017-12-27 10:00)
DX: M17.12 Unilateral primary osteoarthritis, left knee (principal); I10 Essential (primary) hypertension; I25.10 Atherosclerotic heart disease of native coronary artery without angina pectoris; E89.0 Postprocedural hypothyroidism; H35.30 Unspecified macular degeneration; K21.9 Gastro-esophageal reflux disease without esophagitis; I48.0 Paroxysmal atrial fibrillation; I73.9 Peripheral vascular disease, unspecified; H40.9 Unspecified glaucoma; K57.90 Diverticulosis of intestine, part unspecified, without perforation or abscess without bleeding; M25.462 Effusion, left knee; D64.9 Anemia, unspecified; M24.562 Contracture, left knee; M85.862 Other specified disorders of bone density and structure, left lower leg; M21.162 Varus deformity, not elsewhere classified, left knee; M25.762 Osteophyte, left knee; Z88.2 Allergy status to sulfonamides; Z95.1 Presence of aortocoronary bypass graft; Z90.49 Acquired absence of other specified parts of digestive tract; Z98.51 Tubal ligation status; Z90.710 Acquired absence of both cervix and uterus; Z88.3 Allergy status to other anti-infective agents; Z80.0 Family history of malignant neoplasm of digestive organs; Z80.3 Family history of malignant neoplasm of breast; Z82.49 Family history of ischemic heart disease and other diseases of the circulatory system; Z72.89 Other problems related to lifestyle; Z80.1 Family history of malignant neoplasm of trachea, bronchus and lung; Z83.6 Family history of other diseases of the respiratory system; Z87.891 Personal history of nicotine dependence; Z79.82 Long term (current) use of aspirin; Z79.01 Long term (current) use of anticoagulants; Z90.722 Acquired absence of ovaries, bilateral
CPT/HCPCS: 36415; 80048; 84132; 85014; 85018; 85049; 85610; 88305; 88311; A9270-GY; C1776; G8978-GP-CL; G8979-GP-CI; G8987-GO-CJ; G8988-GO-CI; J0690; J1240; J2250; J2270; J2704; J3010; J8540

== ENCOUNTER 2017-11-21 15:30 | Emergency (ER) | payer MEDICARE ==
[2017-11-21 17:13] LABS: Hematocrit 35 % (35-47); Hemoglobin 11.1 g/dl (12.0-16.0); Mean Corpuscular HGB Conc 32 g/dl (31-36); Mean Corpuscular Hemoglobin 24 pg (27-31); Mean Corpuscular Volume 76 fL (80-97); Mean Platelet Volume 7.5 um3 (7.4-10.4); Platelet Count 390 10^3/ul (150-450); Red Cell Distribution Width 29 % (10.5-15); White Blood Count 10.2 10^3/ul (3.5-10.8)
[2017-11-21 17:31] LABS: INR 0.93 (0.77-1.02)
[2017-11-21 17:34] LABS: EGFR Non-African American 84.7 (>60)
[2017-11-21 17:41] LABS: Urine Appearance Clear; Urine Blood Negative (Negative); Urine Color Yellow; Urine Ketones Negative (Negative); Urine Protein Negative (Negative); Urine Specific Gravity 1.009 (1.010-1.030); Urine Urobilinogen Negative (Negative)
--- OUTSIDE RECORDS SUMMARY | 2017-11-21 17:41 | XMS REPORT ---
:1935 External Reference #:[id number] Author Organization [facility] Address [address] [address] Phone [phone] Care Team Providers Name Role Phone Saida Diego PA Primary Care Physician Unavailable Payers Type Date Identification Numbers Payment Provider Subscriber Health Maintenance Effective: Policy Number: Medicare Vince Sorto [facility] ([facility]) 06/24/2013 [id number] o Group Number: [id number] [address] [id number] PayID: [id number] [place] [address] Problems Date Description Provider Status Onset: 10/04/2017 Localized, primary osteoarthritis Samantha Toro M.D. Active Onset: 10/30/2013 Palpitations Carson Gillespie M.D. Active Onset: 10/02/2013 Atrial fibrillation Carson Gillespie M.D. 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 Active Onset: 10/02/2013 Benign essential hypertension Carson Gillespie M.D. 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 [employer] Cigarette Use Former Cigarette Smoker ETOH Use Rarely consumes alcohol Smoking Patient is a former smoker Recreational Drug Use Denies Drug Use Daily Caffeine Consumes on average 1 cup of 1-2 cups daily regular coffee per day Exercise Type/Frequency Exercises rarely Allergies, Adverse Reactions, Alerts Date Description Reaction Status Severity Comments 10/02/2013 Ceclor active 10/04/2017 Azithromycin active Medications Medication Date Status Form Strength Qnty SIG Indications Ordering Provider Bactrim DS 10/22/ Active Tablets 800-160mg 6tabs take 1 Samantha 2017 by mouth [place], twice a M.D. day for 3 days Cartia XT 05/14/ Active Caps ER 24HR 180mg 1 cap po Chase-H 2016 daily Saida sparks PA Metoprolol / Active Tablets 50mg 180ta 1 by Unknown Tartrate 0000 bs mouth twice a day Lisinopril / Active Tablets 40mg 1 by Unknown 0000 mouth every day Levothyroxine / Active Tablets 75mcg 30tab 1 by Unknown Sodium 0000 s mouth every day Aspirin / Active Tablets 81mg 1 by Unknown 0000 mouth every day Ibuprofen / Active 200mg 2 -4 Unknown 0000 tablets po with food prn for pain ( Told to stop today 10/23/17) Omeprazole / Active Capsules DR 40mg 28cap 1 by Unknown 0000 s mouth twice daily Am/PM Savision / Active Tablets 2 by Unknown 0000 mouth every day Baclofen / Active Tablets 10mg 2 tablet [place], 0000 po at Shadi night Carter for DO muscle spasms Multivitamin / Active 1 tablet Unknown Adult 0000 po daily Fluticasone / Active Suspension 50mcg/Act 2 sprays Unknown Propionate 0000 each nostril qd. Benadryl Allergy / Active Capsules 25mg 1 at Unknown 0000 night Diltiazem HCL ER / Hx Caps ER 12HR 120mg 100ca 1 by Unknown 0000 - ps mouth 06/27/ 2017 day Lovastatin / Hx Tablets 20mg 90tab by mouth Unknown 0000 - s every 06/08/ night at 2014 bedtime Diphenhydramine / Hx Capsules 25mg 100ca 1/2 tab Unknown HCL 0000 - ps po qhs, 10/03/ 2018 needed Medications Administered in Office Medication Date Status Form Strength Qnty SIG Indications Ordering Provider Inj, Administered Injection Carson Babcock Regadenoson, 018 Kirill Gillespie 0.1 MG Technetium TC 04/27/2 Administered Injection Carson D. 99M 018 Kirill Gillespie Tetrofosmin, Per Unit Dose Up To 40 Millicuries Technetium TC Administered Injection Carson DAlfa 99M 018 Kirill Gillespie Tetrofosmin, Per Unit Dose Up To 40 Millicuries Depomedrol Administered Injection Samantha 40MG 018 Kirill Toro Inj, Administered Injection Carson D. Regadenoson, 014 Kirill Gillespie 0.1 MG Technetium TC Administered Injection Carson D. 99M 014 Kirill Gillespie Tetrofosmin, Per Unit Dose Up To 40 Millicuries Vital Signs Date Vital Result Comment 10/23/2017 Height 60.75 inches 5'0.75" Weight 162.00 lb with shoes Heart Rate 62 /min BP Systolic Sitting 130 mmHg Rue reg cuff BP Diastolic Sitting 70 mmHg Rue reg cuff BP Systolic Standing 150 mmHg Rue reg cuff BP Diastolic Standing 70 mmHg Rue reg cuff Respiratory Rate 16 /min BMI (Body Mass Index) 30.9 kg/m2 Ejection Fraction 55-60% date 10/12/13 ECHO 10/21/2017 Height 60.75 inches 5'0.75" Heart Rate 62 /min BP Systolic 126 mmHg BP Diastolic 76 mmHg Respiratory Rate 20 /min Body Temperature 96.7 F Pain Level 0 10/04/2017 Height 60.75 inches 5'0.75" Weight 164.00 lb Heart Rate 64 /min BP Systolic 170 mmHg BP Diastolic 82 mmHg BMI (Body Mass Index) 31.2 kg/m2 06/28/2017 Height 59.25 inches 4'11.25" Weight 168.00 lb With out shoes Heart Rate 68 /min BP Systolic Sitting 144 mmHg Rue reg cuff BP Diastolic Sitting 88 mmHg Rue reg cuff BP Systolic Standing 146 mmHg Rue reg cuff BP Diastolic Standing 90 mmHg Rue reg cuff Respiratory Rate 17 /min BMI (Body Mass Index) 33.6 kg/m2 Ejection Fraction 55-60% 10/12/2013-echo 07/04/2016 Height 60.5 inches 5'0.50" Weight 158.00 lb w/ shoes Heart Rate 62 /min BP Systolic Sitting 150 mmHg Lue, reg cuff BP Diastolic Sitting 86 mmHg Lue, reg cuff BP Systolic Standing 142 mmHg Lue BP Diastolic Standing 84 mmHg Lue Respiratory Rate 16 /min BMI (Body Mass Index) 30.3 kg/m2 Ejection Fraction 55-60% as of 10/12/13 echo 06/09/2015 Height 60.5 inches 5'0.50" Weight 183.31 lb with shoes Heart Rate 68 /min BP Systolic Sitting 146 mmHg Ra, Lg cuff BP Diastolic Sitting 88 mmHg Ra, Lg cuff BP Systolic Standing 152 mmHg Ra BP Diastolic Standing 78 mmHg Ra Respiratory Rate 16 /min BMI (Body Mass Index) 35.2 kg/m2 Ejection Fraction 55-60% 10/12/13 06/16/2014 Height 60.5 inches 5'0.50" Weight 192.00 lb Heart Rate 70 /min BP Systolic Sitting 142 mmHg Ra lg cuff BP Diastolic Sitting 68 mmHg Ra lg cuff BP Systolic Standing 150 mmHg Ra lg cuff BP Diastolic Standing 74 mmHg Ra lg cuff Respiratory Rate 18 /min BMI (Body Mass Index) 36.9 kg/m2 10/30/2013 Height 60.5 inches 5'0.50" Weight 137.00 lb Heart Rate 68 /min BP Systolic Sitting 128 mmHg Ra large cuff BP Diastolic Sitting 74 mmHg Ra large cuff BP Systolic Standing 124 mmHg Ra BP Diastolic Standing 78 mmHg Ra Respiratory Rate 16 /min BMI (Body Mass Index) 26.3 kg/m2 10/02/2013 Height 60.5 inches 5'0.50" Weight 187.00 lb Heart Rate 68 /min BP Systolic Sitting 142 mmHg Ra large cuff BP Diastolic Sitting 84 mmHg Ra large cuff BP Systolic Standing 138 mmHg Ra BP Diastolic Standing 82 mmHg Ra Respiratory Rate 18 /min BMI (Body Mass Index) 35.9 kg/m2 Results Test Date Test Result H/L Range Note Comp Metabolic Panel 10/21/2017 Sodium 136 mmol/L Low 139-145 Potassium 4.8 mmol/L 3.5-5.0 Chloride 99 mmol/L Low 101-111 Co2 Carbon Dioxide 30 mmol/L 22-32 Anion Gap 7 mmol/L 2-11 Glucose 88 mg/dL 70-100 Blood Urea Nitrogen 14 mg/dL 6-24 Creatinine 0.77 mg/dL 0.51-0.95 BUN/Creatinine Ratio 18.2 8-20 Calcium 9.1 mg/dL 8.6-10.3 Total Protein 6.0 g/dL Low 6.4-8.9 Albumin 3.5 g/dL 3.2-5.2 Globulin 2.5 g/dL 2-4 Albumin/Globulin Ratio 1.4 1-3 Total Bilirubin 0.30 mg/dL 0.2-1.0 Alkaline Phosphatase 47 U/L 34-104 Alt 11 U/L 7-52 Ast 10 U/L Low 13-39 Egfr Non- 72.1 >60 Egfr 92.8 >60 1 Inr/Protime 10/21/2017 Inr 0.91 0.77-1.02 Laboratory test finding 10/21/2017 Partial Thrombo Time 30.0 seconds 26.0 -36.3 PTT Urinalysis Profile 10/21/2017 Urine Color [place] Urine Appearance Cloudy Urine Specific [place] 1.016 1.010-1.030 Urine pH 6.0 5-9 Urine Urobilinogen Negative Negative Urine Ketones Negative Negative Urine Protein Negative Negative Urine Leukocytes 1+ Negative Urine Blood Negative Negative * * Negative 2 Urine Nitrite Negative Negative Urine Bilirubin Negative Negative Urine Glucose Negative Negative Urine White Blood Cell Trace(0-5/hpf) Absent Urine Red Blood Cell Trace(0-2/hpf) Absent Urine Bacteria Absent Absent Urine Squamous Epithelial Cell Present Absent Type & Screen 10/21/2017 Patient Blood Type O Positive Antibody Screen NEGATIVE CBC Auto Diff 10/21/2017 White Blood Count 13.7 10^3/uL High 3.5-10.8 Red Blood Count 4.69 10^6/uL 4.0-5.4 Hemoglobin 9.6 g/dL Low 12.0-16.0 Hematocrit 32 % Low 35-47 Mean Corpuscular Volume 68 fL Low 80-97 Mean Corpuscular Hemoglobin 21 pg Low 27-31 Mean Corpuscular HGB Conc 30 g/dL Low 31-36 Red Cell Distribution Width 23 % High 10.5-15 Platelet Count 502 10^3/uL High 150-450 Mean Platelet Volume 7.8 um3 7.4-10.4 Abs Neutrophils 10.3 10^3/uL High 1.5-7.7 Abs Lymphocytes 2.1 10^3/uL 1.0-4.8 Abs Monocytes 1.1 10^3/uL High 0-0.8 Abs Eosinophils 0.2 10^3/uL 0-0.6 Abs Basophils 0.1 10^3/uL 0-0.2 Abs Nucleated RBC 0 10^3/uL Granulocyte % 74.9 % 38-83 Lymphocyte % 15.0 % Low 25-47 Monocyte % 8.4 % High 0-7 Eosinophil % 1.1 % 0-6 Basophil % 0.6 % 0-2 Nucleated Red Blood Cells % 0 Cell Morphology 10/21/2017 Microcytosis 3+ Hypochromasia 1+ Anisocytosis 2+ Laboratory test finding 10/21/2017 Pathologist Review (SEE NOTE) 3 Urine Culture And 10/21/2017 Urine Culture SEE RESULT BELOW 4 Sensitivities Laboratory test finding 07/31/2014 Troponin I 0.00 ng/mL <0.03 5 Comp Metabolic Panel 07/31/2014 Sodium 134 mmol/L 133-145 Potassium 2.9 mmol/L Low 3.5-5.0 Chloride 97 mmol/L Low 101-111 Co2 Carbon Dioxide 30 mmol/L 22-32 Anion Gap 7 mmol/L 2-11 Glucose 107 mg/dL High 70-100 Blood Urea Nitrogen 10 mg/dL 6-24 Creatinine 0.74 mg/dL 0.51-0.95 BUN/Creatinine Ratio 13.5 8-20 Calcium 9.6 mg/dL 8.6-10.3 Total Protein 6.7 g/dL 6.4-8.9 Albumin 3.8 g/dL 3.2-5.2 Globulin 2.9 g/dL 2-4 Albumin/Globulin Ratio 1.3 1-3 Total Bilirubin 0.40 mg/dL 0.2-1.0 Alkaline Phosphatase 52 U/L 34-104 Alt 16 U/L 7-52 Ast 15 U/L 13-39 Egfr Non- 76.1 >60 Egfr 97.9 >60 6 CBC Auto Diff 07/31/2014 White Blood Count 15.8 10^3/uL High 4.8-10.8 Red Blood Count 4.48 10^6/uL 4.0-5.4 Hemoglobin 12.9 g/dL 12.0-16.0 Hematocrit 39 % 35-47 Mean Corpuscular Volume 88 fL 80-97 Mean Corpuscular Hemoglobin 29 pg 27-31 Mean Corpuscular HGB Conc 33 g/dL 31-36 Red Cell Distribution Width 14 % 10.5-15 Platelet Count 376 10^3/uL 150-450 Mean Platelet Volume 9 um3 7.4-10.4 Abs Neutrophils 10.4 10^3/uL High 1.5-7.7 Abs Lymphocytes 3.3 10^3/uL 1.0-4.8 Abs Monocytes 1.4 10^3/uL High 0-0.8 Abs Eosinophils 0.5 10^3/uL 0-0.6 Abs Basophils 0.1 10^3/uL 0-0.2 Abs Nucleated RBC 0.02 10^3/uL Granulocyte % 65.9 % 38-83 Lymphocyte % 20.9 % Low 25-47 Monocyte % 9.2 % High 1-9 Eosinophil % 3.1 % 0-6 Basophil % 0.9 % 0-2 Nucleated Red Blood Cells % 0.1 Laboratory test finding 09/24/2013 Ast 16 U/L 13-39 Basic Metabolic Panel 09/24/2013 Sodium 138 mmol/L 133-145 Potassium 4.2 mmol/L 3.7-5.6 Chloride 102 mmol/L 101-111 Co2 Carbon Dioxide 30 mmol/L 22-32 Anion Gap 6 mmol/L 2-11 Glucose 89 mg/dL 70-100 Blood Urea Nitrogen 15 mg/dL 6-24 Creatinine 0.75 mg/dL 0.51-0.95 BUN/Creatinine Ratio 20.0 8-20 Calcium 9.6 mg/dL 8.6-10.3 Egfr Non- 75.1 >60 Egfr 96.6 >60 7 Laboratory test finding 09/24/2013 TSH (Thyroid Stimulating 1.26 IU/mL 0.34-5.60 Horm) 1 Because ethnic data is not always readily available, this report includes an eGFR for both -Americans and non- Americans. The National Kidney Disease Education Program (NKDEP) does not endorse the use of the MDRD equation for patients that are not between the ages of 18 and 70, are , have extremes of body size, muscle mass, or nutritional status, or are non- or non-. According to the National Kidney Foundation, irrespective of diagnosis, the stage of the disease is based on the level of kidney function: Stage Description GFR(mL/min/1.73 m(2)) 1 Kidney damage with normal or decreased GFR 90 2 Kidney damage with mild decrease in GFR 60-89 3 Moderate decrease in GFR 30-59 4 Severe decrease in GFR 15-29 5 Kidney failure <15 (or dialysis) 2 *Ascorbic acid is present which may interfere with detection of blood. 3 Leukocytosis with absolute neutrophilia indicative of acute inflammatory/reactive cells. Moderate microcytic anemia with red cell indices suggestive of iron deficiency. Additional studies as clinically warranted. Reviewed by Dr. Carvajal 4 SEE RESULT BELOW Name: JUN SORTO : [address]: Samantha Toor MD Acct: [id number] Unit: [id number] AGE: 82 Location: [facility] Re10/21/17 SEX: F Status: REG REF SPEC: [id number] KARUNA: 10/21/17-1139 [facility] DR: Samantha Toro MD REQ: [id number] RECD: 10/21/17-1311 STATUS: WOL[facility] CLINE DR: Saida Diego [facility] _ SOURCE: URINE SPDESC: ORDERED: Urine Culture QUERIES: Urine Source: Clean Catch Procedure Result Reported Site Urine Culture Final 10/22/17- 1203 ML No Growth (<1,000 CFU/mL) * ML - Main Lab . END OF REPORT DEPARTMENT OF PATHOLOGY, [address] [place] [address] Sebastian Carvajal M.D. Director [facility] # [id number] 5 Reference Range and Interpretation: TnI (ng/mL) Interpretation Less Than 0.03 ng/mL Not supportive of diagnosis of OR 0.03 - 0.50 ng/mL Indeterminate: suggest serial studies if clinically indicated. Greater than 0.5 ng/mL Consistent with diagnosis of OR 6 Because ethnic data is not always readily available, this report includes an eGFR for both -Americans and non- Americans. The National Kidney Disease Education Program (NKDEP) does not endorse the use of the MDRD equation for patients that are not between the ages of 18 and 70, are , have extremes of body size, muscle mass, or nutritional status, or are non- or non-. According to the National Kidney Foundation, irrespective of diagnosis, the stage of the disease is based on the level of kidney function: Stage Description GFR(mL/min/1.73 m(2)) 1 Kidney damage with normal or decreased GFR 90 2 Kidney damage with mild decrease in GFR 60-89 3 Moderate decrease in GFR 30-59 4 Severe decrease in GFR 15-29 5 Kidney failure <15 (or dialysis) 7 Because ethnic data is not always readily available, this report includes an eGFR for both -Americans and non- Americans. The National Kidney Disease Education Program (NKDEP) does not endorse the use of the MDRD equation for patients that are not between the ages of 18 and 70, are , have extremes of body size, muscle mass, or nutritional status, or are non- or non-. According to the National Kidney Foundation, irrespective of diagnosis, the stage of the disease is based on the level of kidney function: Stage Description GFR(mL/min/1.73 m(2)) 1 Kidney damage with normal or decreased GFR 90 2 Kidney damage with mild decrease in GFR 60-89 3 Moderate decrease in GFR 30-59 4 Severe decrease in GFR 15-29 5 Kidney failure <15 (or dialysis) Procedures Date CPT Code Description Status 10/23/2017 31226 EKG Tracing & Interpretation Completed 10/18/2017 98630 Stress Test Completed 10/18/2017 00143 Myocardial Perfusion Imaging Tomographic (Spect) Completed Multiple Studies 10/04/2017 32243 Inject/Drain Joint/Bursa Major Completed 06/28/2017 66150 EKG Tracing & Interpretation Completed 07/04/2016 87113 EKG Tracing & Interpretation Completed 06/09/2015 35930 EKG Tracing & Interpretation Completed 04/01/2015 51814 Nerve Conduction 03-04 Studies Completed 04/01/2015 16059 Needle Electromyography Complete, Five Or More Muscles Completed Studied 08/01/2014 38333 ECHO Transthorasic Realtime 2D W Doppler & Color Completed Flow Hosp 08/01/2014 57035 EKG, Interpretation Only Completed 02/03/2014 Mammogram Completed 10/21/2013 42256 Stress Test Completed 10/21/2013 14122 Myocardial Perfusion Imaging Tomographic (Spect) Completed Multiple Studies 10/12/2013 78794 ECHO Transthoracic, Real-Time 2D With Doppler And Color Completed Flow 10/02/2013 46509 EKG Tracing & Interpretation Completed Encounters Type Date Location Provider CPT E/M Dx Office Visit 10/23/2017 [facility] Carson Gillespie, 34094 I25.10 9:30a Ruthie Ryan.31 I48.0 Z01.810 Office Visit 10/04/2017 9:15a [facility] Toro M.D. 22889 M25.561 C.M.AAlfa M25.562 M25.461 M25.462 M17.0 Office Visit 06/28/2017 12:00p [facility] Carson ConleyAlfa Jose Miguel, 46820 I25.10 Ruthie M.DAlfa I10 R94.31 Office Visit 07/04/2016 10:00a [facility] Carson ConleyAlfa Jose Miguel, 90229 I25.10 Mice Raiser M.DAlfa R94.31 Office Visit 06/09/2015 9:45a [facility] Carson ConleyAlfa Jose Miguel, 83496 I25.10 Mice Raiser M.DAlfa I10 R94.31 Office Visit 08/01/2014 7:09a [facility], Manuel Garsia 29169 786.52 Hospitalists Kirill Ervin 414.00 244.9 401.9 Office Visit 06/16/2014 11:15a [facility] Carson ConleyAlfa Gillespie, 21926 414.01 Ruthie M.DAlfa 785.1 414.02 Office Visit 10/30/2013 9:00a [facility] Carson ConleyAlfa Gillespie, 05279 414.01 Ruthie M.DAlfa 785.1 414.02 Office Visit 10/02/2013 9:00a [facility] Carson ConleyAlfa Gillespie, 09676 401.1 Ruthie M.Yoko 414.01 414.02 427.31 Plan of Care Future Appointment(s):12/27/2017 9:00 am - Carson Gillespie M.D. at [facility]10/31/2017 12:30 pm - Frandy Licea PA-C at [facility]/31/2017 12:30 pm - Paige Wilson PA-C at [facility]10/31/2017 12:30 pm - Samantha Toro M.D. at [facility]11/11/2017 9:00 am - Samantha Toro M.D. at [facility]/23/2017 - Carson Gillespie M.D.I25.10 [facility] [place] coronary artery w/o ang pctrsFollow up:2 scsvloQ02.31 Abnormal electrocardiogram [ECG] [EKG]I48.0 Paroxysmal atrial [id number] Encounter for preprocedural cardiovascular examination
[2017-11-21 17:45] LABS: ABS Basophils 0.1 10^3/ul (0-0.2); ABS Eosinophils 0.2 10^3/ul (0-0.6); ABS Neutrophils 6.9 10^3/ul (1.5-7.7); ABS Nucleated RBC 0 10^3/ul; Eosinophil % 1.7 % (0-6); Lymphocyte % 19.3 % (25-47); Nucleated Red Blood Cells % 0
--- NOTE | 2017-11-21 19:23 | RAD ---
HISTORY: Dizziness COMPARISONS: October 21, 2017 VIEWS: 1: frontal portable view of the chest at 5:37 PM FINDINGS: LINES AND TUBES: None. CARDIOMEDIASTINAL SILHOUETTE: The cardiomediastinal silhouette is normal for portable technique. PLEURA: Again noted is elevation of the right hemidiaphragm. LUNG PARENCHYMA: The lungs are clear. ABDOMEN: The upper abdomen is clear. There is no subphrenic gas. BONES AND SOFT TISSUES: The patient is status post median sternotomy. IMPRESSION: STABLE ELEVATION OF THE RIGHT HEMIDIAPHRAGM.
--- NOTE | 2017-11-21 20:43 | ED ---
Gucci Haro Elizabeth, scribed for Jose Castillo MD on 11/21/17 at 1719 . Palpitations / Dysrhythmia - HPI Summary HPI Summary: This patient is an 82 year old F presenting to [facility] upon referral from her primary care physician with a chief complaint of dysrhythmia since 1 day ago. The patient notes that she had her blood pressure and pulse taken last night and both were low. The patient rates the pain 0/10 in severity. Symptoms aggravated by nothing. Symptoms alleviated by nothing. Patient reports fatigue, mild lightheadedness, and edema in the lower extremities. Patient denies dizziness, lightheadedness, chest pain, shortness of breath, N/V/D, headache, and dysuria. Per triage note, patient has hx of anemia and AF. - History of Current Complaint Chief Complaint: EDDysrhythmPalp Time Seen by Provider: 11/21/17 16:46 Hx Obtained From: Patient Onset/Duration: Sudden Onset, Lasting Hours, Resolved Severity Initially: Mild Severity Currently: Mild Character: Slow Aggravating: Nothing Alleviating: Nothing Associated Signs & Symptoms: Negative - NEGATIVE CHEST PAIN, NEGATIVE DIZZINESS , NEGATIVE N/V, NEGATIVE HEADACHE, Lightheadedness - Allergy/Home Medications Allergies/Adverse Reactions: Allergies Allergy/AdvReac Type Severity Reaction Status Date / Time azithromycin Allergy Severe Shortness Verified 10/21/17 10:06 of Breath cefaclor Allergy Unknown Unknown Verified 10/21/17 11:05 Reaction Details Home Medications: Home Medications Aspirin EC TAB* [Ecotrin EC Low Dose 81 MG*] 81 mg PO DAILY 11/21/17 [History Confirmed 11/21/17] Baclofen TAB* [Lioresal TAB*] 20 mg PO BEDTIME PRN 11/21/17 [History Confirmed 11/21/17] Levothyroxine TAB* [Synthroid TAB*] 75 mcg PO DAILY 11/21/17 [History Confirmed 11/21/17] Lisinopril TAB* [Prinivil TAB*] 40 mg PO DAILY 11/21/17 [History Confirmed 11/21] Metoprolol Tartrate TAB* [Lopressor TAB*] 50 mg PO BID 11/21/17 [History Confirmed 11/21/17] Multivitamins/Minerals TAB* [Theragran/minerals TAB*] 1 tab PO DAILY 11/21/17 [ History Confirmed 11/21/17] Omeprazole CAP* [Prilosec CAP* 20 MG] 40 mg PO BID 11/21/17 [History Confirmed 11/21/17] diPHENhydraMINE PO* [Benadryl PO 25 MG TAB*] 25 mg PO BEDTIME 11/21/17 [History Confirmed 11/21/17] dilTIAZem HCl [Cartia Xt] 180 mg PO DAILY 11/21/17 [History Confirmed 11/21/17] PMH/Surg Hx/FS Hx/Imm Hx Endocrine/Hematology History: Reports: Hx Thyroid Disease - hypothyroidism Cardiovascular History: Reports: Hx Hypertension GI History: Reports: Hx Gastroesophageal Reflux Disease Musculoskeletal History: Reports: Hx Arthritis - knees, wrists, hips Sensory History: Reports: Hx Contacts or Glasses Opthamlomology History: Reports: Hx Contacts or Glasses - Cancer History Hx Chemotherapy: No Hx Radiation Therapy: No - Surgical History Surgery Procedure, Year, and Place: rt thyroid lobectomy 1984. GABE-BSO 1987. tubal ligation 1973. EUA rt knee 2000. Danilo fundoplication 1995. lap cy. 4 vessel CABG 2010 - Immunization History Date of Tetanus Vaccine: unknown Infectious Disease History: No Infectious Disease History: Denies: Traveled Outside the [place] in Last 30 Days - Family History Known Family History: Negative: Seizure Disorder, Blood Disorder - Social History Alcohol Use: Rare Substance Use Type: Reports: None Smoking Status (MU): Former Smoker Review of Systems Positive: Fatigue Positive: Palpitations - slow HR. Negative: Chest Pain Negative: Shortness Of Breath Negative: Vomiting, Nausea Negative: dysuria Neurological: Negative - NEGATIVE DIZZINESS, Other - Lightheadedness Negative: Headache All Other Systems Reviewed And Are Negative: Yes Physical Exam - Summary Physical Exam Summary: VITAL SIGNS: Reviewed. GENERAL: Patient is a well-developed and nourished FEMALE who is lying comfortable in the stretcher. Patient is not in any acute respiratory distress. HEAD AND FACE: No signs of trauma. No ecchymosis, hematomas or skull depressions. No sinus tenderness. EYES: PERRLA, EOMI x 2, No injected conjunctiva, no nystagmus. EARS: Hearing grossly intact. Ear canals and tympanic membranes are within normal limits. MOUTH: Oropharynx within normal limits. NECK: Supple, trachea is midline, no adenopathy, no JVD, no carotid bruit, no c- spine tenderness, neck with full ROM. CHEST: Symmetric, no tenderness at palpation LUNGS: Clear to auscultation bilaterally. No wheezing or crackles. CVS: Regular rate and rhythm, S1 and S2 present, no murmurs or gallops appreciated. ABDOMEN: Soft, non-tender. No signs of distention. No rebound no guarding, and no masses palpated. Bowel sounds are normal. EXTREMITIES: FROM in all major joints, no edema, no cyanosis or clubbing. NEURO: Alert and oriented x 3. No acute neurological deficits. Speech is normal and follows commands. SKIN: Dry and warm Triage Information Reviewed: Yes Vital Signs On Initial Exam: Initial Vitals Temp Pulse Resp BP Pulse Ox 98.6 F 75 15 190/88 97 11/21/17 15:48 11/21/17 15:48 11/21/17 15:48 11/21/17 15:48 11/21/17 15:48 Vital Signs Reviewed: Yes Diagnostics - Vital Signs Vital Signs Temp Pulse Resp BP Pulse Ox 11/21/17 16:37 78 22 199/92 96 11/21/17 15:48 98.6 F 75 15 190/88 97 - Laboratory Lab Results: Lab Results 11/21/17 Range/Units 16:59 WBC 10.2 (3.5-10.8) 10^3/ul RBC 4.60 (4.0-5.4) 10^6/ul Hgb 11.1 L (12.0-16.0) g/dl Hct 35 (35-47) % MCV 76 L (80-97) fL MCH 24 L (27-31) pg MCHC 32 (31-36) g/dl RDW 29 H (10.5-15) % Plt Count 390 (150-450) 10^3/ul MPV 7.5 (7.4-10.4) um3 Neut % (Auto) Pending Lymph % (Auto) Pending [place] % (Auto) Pending Eos % (Auto) Pending Baso % (Auto) Pending Absolute Neuts (auto) Pending Absolute Lymphs (auto) Pending Absolute Monos (auto) Pending Absolute Eos (auto) Pending Absolute Basos (auto) Pending Absolute Nucleated RBC Pending Nucleated RBC % Pending Result Diagrams: 11/21/17 16:59 11/21/17 16:59 Lab Statement: Any lab studies that have been ordered have been reviewed, and results considered in the medical decision making process. - Radiology CXR Xray Interpretation: Positive (See Comments) - IMPRESSION: STABLE ELEVATION OF THE RIGHT HEMIDIAPHRAGM. Dr. Castillo has reviewed this report. Radiology Interpretation Completed By: Radiologist - EKG 16:05 Cardiac Rate: NL - at 83 BPM EKG Rhythm: Sinus Rhythm EKG Interpretation: Sinus rhythm with RBBB 20:23 Cardiac Rate: NL - at 73 BPM EKG Rhythm: Sinus Rhythm EKG Interpretation: NSR with RBBB, unchanged from previous EKG EKG Comparison: No Significant Change - with 11/21/17 EKG taken at 16:05 Course/Dx - Course Assessment/Plan: This patient is an 82-year-old female who presents to the emergency room with a chief complaint of having weakness. She reports that last night she had a low blood pressure which is unusual for her and they have rate was also low. Today she doesnt have any of the symptoms, her vital signs are normal. Blood pressure without any significant abnormality except for sodium of 136, pulse 113, CRP of 5.14, total protein 5.8. Urinalysis is contaminated therefore I will send the urine for cultures. First troponin is 0.00. The patient has been asymptomatic. The patient is undulating in the ER with no symptoms. Chest x-ray impression: A stable elevation of the right hemidiaphragm. The second troponin is also 0.00. The patient continues to be asymptomatic therefore she will be discharged with follow-up with primary care physician. I discussed all the findings and test results with the patient. Patient was instructed to return to the emergency room immediately if any of the symptoms return or worsens. Plan of care was discussed with the patient and understands and agrees. All questions were answered at patient satisfaction. There were no further complaints or concerns. Lung exam before discharge: CTA B /L. Good air exchange. No wheezing or crackles heard. CVS: S1 and S2 present. No murmurs appreciated. Patient is alert and oriented x 3. Patient is hemodynamically stable. Patient will be discharged home with follow up PCP in the next 2-3 days - Diagnoses Provider Diagnoses: Weakness Discharge - Sign-Out/Discharge Documenting (check all that apply): Discharge/Admit/Transfer - Discharge Plan Condition: Stable Disposition: HOME Patient Education Materials: Weakness (ED) Referrals: Saida Joe [Primary Care Provider] - 3 Days Additional Instructions: Follow up with primary care physician within 3-5 days. Return to emergency department for any new or worsening symptoms. - Billing Disposition and Condition Condition: STABLE Disposition: HOME The documentation as recorded by the Gucci lopez Elizabeth accurately reflects the service I personally performed and the decisions made by Jonathan streeter Walter, MD.
[2017-11-21 21:31] VITALS: BP 142/68
== END 2017-11-21 21:31 | disposition home or self-care (01) ==
LOC: ED 15:30
DX: R53.1 Weakness (principal); J98.4 Other disorders of lung; Z87.891 Personal history of nicotine dependence; Z88.3 Allergy status to other anti-infective agents
CPT/HCPCS: 36415; 71045; 80053; 81003; 81015; 82550; 83605; 83735; 83880; 84443; 84484; 85025; 85610; 85730; 86140; 87086; 93005; 99283

== ENCOUNTER 2022-06-07 15:38 | Inpatient (IN) ==
[2022-06-07] MEDS ORDERED: Morphine 2 MG/ML SYRINGE IV ONE (17:36)
[2022-06-07] MEDS ORDERED: Ondansetron 4 mg VIAL 2 MG/ML 2 ml VIAL IV ONE (17:36)
[2022-06-07 17:58] LABS: ABS Eosinophils 0.1 10^3/ul (0-0.6); ABS Lymphocytes 1.4 10^3/ul (1.0-4.8); ABS Monocytes 1.1 10^3/ul (0-0.8); ABS Neutrophils 11.2 10^3/ul (1.5-7.7); Eosinophil % 0.4 %; Hematocrit 43 % (35-47); Lymphocyte % 10.1 %; Mean Corpuscular HGB Conc 35 g/dL (31-36); Mean Corpuscular Hemoglobin 32 pg (27-31); Mean Corpuscular Volume 90 fL (80-97); Mean Platelet Volume 6.6 fL (7.4-10.4); Nucleated Red Blood Cells % 0.1; Platelet Count 382 10^3/uL (150-450); Red Blood Count 4.73 10^6 /uL (3.70-4.87); Red Cell Distribution Width 14 % (10-15); White Blood Count 13.8 10^3/uL (3.5-10.8)
[2022-06-07 18:07] LABS: INR 1.04 (0.88-1.18)
[2022-06-07 18:24] LABS: Albumin 4.4 g/dL (3.2-5.2); Albumin/Globulin Ratio 1.7 (1-3); Calcium 9.7 mg/dL (8.6-10.3); Globulin 2.6 g/dL (2-4); Potassium 4.1 mmol/L (3.5-5.0); Total Bilirubin 0.6 mg/dL (0.2-1.0)
[2022-06-07] MEDS ORDERED: Heparin 5000 UNITS/ML 1 mL VIAL SUBCUT ONE (19:18)
[2022-06-07 21:03] LABS: Osmolality Serum 256 mOsm/kg (275-295)
[2022-06-07 23:13] LABS: Urine Appearance Clear; Urine Bilirubin Negative (Negative); Urine Blood Negative (Negative); Urine Color Yellow; Urine Glucose Negative (Negative); Urine Ketones Trace (Negative); Urine Nitrite Negative (Negative); Urine Protein Negative (Negative); Urine Specific Gravity 1.015 (1.005-1.030); Urine Urobilinogen 0.2 (Negative) (Negative)
[2022-06-07 23:46] LABS: Urine Osmo 269 mOsm/kg (150-1150)
[2022-06-08] MEDS ORDERED: NS 0.9% 1000 ml BAG 1,000 ML IV SCH (00:45)
[2022-06-08 01:30] LABS: TSH Ultra Thyroid Stim Horm 2.98 mcIU/mL (0.34-5.60)
[2022-06-08] MEDS: Acetaminophen IV 1 GM/100ML 1,000 MG/100 ML BAG IV PRN ×2 (01:46→21:47)
[2022-06-08] MEDS: Morphine 2 MG/ML SYRINGE IV PRN ×2 (06:00→12:24)
[2022-06-08 07:06] LABS: ABS Eosinophils 0.3 10^3/ul (0-0.6); ABS Monocytes 1.2 10^3/ul (0-0.8); ABS Neutrophils 9.9 10^3/ul (1.5-7.7); Eosinophil % 2.3 %; Hematocrit 39 % (35-47); Hemoglobin 13.2 g/dL (12.0-16.0); Lymphocyte % 8.2 %; Mean Corpuscular HGB Conc 34 g/dL (31-36); Mean Corpuscular Hemoglobin 31 pg (27-31); Mean Corpuscular Volume 90 fL (80-97); Mean Platelet Volume 6.7 fL (7.4-10.4); Platelet Count 337 10^3/uL (150-450); Red Blood Count 4.26 10^6 /uL (3.70-4.87); Red Cell Distribution Width 14 % (10-15); White Blood Count 12.4 10^3/uL (3.5-10.8)
[2022-06-08 07:15] LABS: Magnesium 1.5 mg/dL (1.9-2.7); eGFR CKD-EPI 89.8 (>60)
[2022-06-08] MEDS ORDERED: Magnesium Sulf 4 GM/100 ML IV 4,000 MG/100 ML BAG IVPB ONE (07:20)
[2022-06-08] MEDS ORDERED: NS 0.9% 1000 ml BAG 1,000 ML IV ONE (07:45)
[2022-06-08] MEDS: Heparin 5000 UNITS/ML 1 mL VIAL SUBCUT SCH ×2 (14:25→21:44)
[2022-06-08 16:29] LABS: Calcium 8.6 mg/dL (8.6-10.3); Potassium 4.8 mmol/L (3.5-5.0); eGFR CKD-EPI 86.9 (>60)
[2022-06-08] MEDS ORDERED: Ure-Na 15 GM POWD.PACK PO SCH (17:00)
[2022-06-08] MEDS ORDERED: Ondansetron 4 mg VIAL 2 MG/ML 2 ml VIAL ONE (17:37)
[2022-06-08] MEDS: Ondansetron 4 mg VIAL 2 MG/ML 2 ml VIAL IV PRN (17:43)
[2022-06-08 21:49] LABS: Calcium 8.5 mg/dL (8.6-10.3); Magnesium 2.1 mg/dL (1.9-2.7); Potassium 4.1 mmol/L (3.5-5.0); eGFR CKD-EPI 89.4 (>60)
[2022-06-09] MEDS: Morphine 2 MG/ML SYRINGE IV PRN ×3 (06:05→20:49)
[2022-06-09 07:00] LABS: ABS Basophils 0.1 10^3/ul (0-0.2); ABS Eosinophils 0.2 10^3/ul (0-0.6); ABS Lymphocytes 1.3 10^3/ul (1.0-4.8); ABS Monocytes 1.1 10^3/ul (0-0.8); ABS Neutrophils 8.7 10^3/ul (1.5-7.7); Hematocrit 38 % (35-47); Hemoglobin 13.2 g/dL (12.0-16.0); Lymphocyte % 11.6 %; Mean Corpuscular HGB Conc 35 g/dL (31-36); Mean Corpuscular Hemoglobin 31 pg (27-31); Mean Corpuscular Volume 89 fL (80-97); Mean Platelet Volume 6.8 fL (7.4-10.4); Nucleated Red Blood Cells % 0.1; Platelet Count 313 10^3/uL (150-450); Red Blood Count 4.22 10^6 /uL (3.70-4.87); Red Cell Distribution Width 14 % (10-15); White Blood Count 11.5 10^3/uL (3.5-10.8)
[2022-06-09 07:12] LABS: Calcium 8.7 mg/dL (8.6-10.3); Magnesium 2.2 mg/dL (1.9-2.7); Potassium 4.1 mmol/L (3.5-5.0); eGFR CKD-EPI 87.2 (>60)
[2022-06-09 11:41] LABS: eGFR CKD-EPI 87.6 (>60)
[2022-06-09 11:48] LABS: Potassium 5.4 mmol/L (3.5-5.0)
[2022-06-09] MEDS ORDERED: Lidocaine 2% PF 5 ML VIAL ONE (13:31)
[2022-06-09] MEDS ORDERED: Propofol 10 MG/ML 20 ML BTL ONE (13:31)
[2022-06-09] MEDS ORDERED: Dexmedetomidine 200 mcg/2 ml 2 ml VIAL (200 mcg) ONE (13:31)
[2022-06-09] MEDS ORDERED: Bupivacaine 0.5% SDV PF 30ML VIAL ONE (14:28)
[2022-06-09] MEDS ORDERED: Clindamycin 900 MG/D5W BAG 900 MG/50 ML BAG IVPB ONE (14:35)
[2022-06-09 19:57] LABS: Hematocrit 38 % (35-47); Hemoglobin 12.6 g/dL (12.0-16.0); Mean Corpuscular HGB Conc 34 g/dL (31-36); Mean Corpuscular Hemoglobin 31 pg (27-31); Mean Corpuscular Volume 92 fL (80-97); Mean Platelet Volume 6.7 fL (7.4-10.4); Platelet Count 296 10^3/uL (150-450); Red Blood Count 4.12 10^6 /uL (3.70-4.87); Red Cell Distribution Width 14 % (10-15); White Blood Count 16.3 10^3/uL (3.5-10.8)
[2022-06-09 20:46] LABS: Calcium 8.8 mg/dL (8.6-10.3); Potassium 4.4 mmol/L (3.5-5.0); eGFR CKD-EPI 83.3 (>60)
[2022-06-09] MEDS: Enoxaparin 40 MG/0.4 ML SYR SUBCUT SCH (20:49)
[2022-06-09] MEDS: Clindamycin 900 MG/50 **NS BAG 900 MG/50 ML BAG IV SCH (20:49)
[2022-06-10] MEDS: Morphine 2 MG/ML SYRINGE IV PRN (02:00)
[2022-06-10] MEDS: Clindamycin 900 MG/50 **NS BAG 900 MG/50 ML BAG IV SCH ×2 (04:25→11:17)
[2022-06-10 07:10] LABS: Hematocrit 34 % (35-47); Hemoglobin 11.8 g/dL (12.0-16.0); Mean Corpuscular HGB Conc 34 g/dL (31-36); Mean Corpuscular Hemoglobin 31 pg (27-31); Mean Corpuscular Volume 91 fL (80-97); Mean Platelet Volume 7.2 fL (7.4-10.4); Platelet Count 310 10^3/uL (150-450); Red Blood Count 3.79 10^6 /uL (3.70-4.87); Red Cell Distribution Width 14 % (10-15); White Blood Count 14.7 10^3/uL (3.5-10.8)
[2022-06-10 07:35] LABS: Albumin 3.3 g/dL (3.2-5.2); Albumin/Globulin Ratio 1.5 (1-3); Calcium 8.5 mg/dL (8.6-10.3); Globulin 2.2 g/dL (2-4); Potassium 4.7 mmol/L (3.5-5.0); Total Bilirubin 0.9 mg/dL (0.2-1.0); Total Protein 5.5 g/dL (6.4-8.9); eGFR CKD-EPI 85.9 (>60)
[2022-06-10 07:39] LABS: ABS Lymphocytes 0.8 10^3/ul (1.0-4.8); ABS Monocytes 1.9 10^3/ul (0-0.8); Eosinophil % 0.2 %; Lymphocyte % 5.2 %
[2022-06-10] MEDS: Ondansetron 4 mg VIAL 2 MG/ML 2 ml VIAL IV PRN (09:03)
[2022-06-10] MEDS: Enoxaparin 40 MG/0.4 ML SYR SUBCUT SCH (21:40)
[2022-06-11 06:11] LABS: Hematocrit 33 % (35-47); Hemoglobin 11.2 g/dL (12.0-16.0); Mean Corpuscular HGB Conc 34 g/dL (31-36); Mean Corpuscular Hemoglobin 31 pg (27-31); Mean Corpuscular Volume 92 fL (80-97); Mean Platelet Volume 7.3 fL (7.4-10.4); Platelet Count 302 10^3/uL (150-450); Red Cell Distribution Width 14 % (10-15); White Blood Count 13.3 10^3/uL (3.5-10.8)
[2022-06-11 06:12] LABS: ABS Eosinophils 0.3 10^3/ul (0-0.6); ABS Lymphocytes 1.3 10^3/ul (1.0-4.8); ABS Monocytes 1.9 10^3/ul (0-0.8); ABS Neutrophils 9.9 10^3/ul (1.5-7.7); Eosinophil % 1.9 %; Lymphocyte % 9.4 %
[2022-06-11 06:23] LABS: Calcium 8.8 mg/dL (8.6-10.3); Magnesium 1.9 mg/dL (1.9-2.7); Potassium 4.3 mmol/L (3.5-5.0)
[2022-06-11] MEDS ORDERED: Magnesium Sulfate 2 gm BAG 2 GM/50 ML BAG IVPB ONE (07:45)
[2022-06-11] MEDS: Magnesium Hydroxide LIQ 30 ML UDC PO SCH ×2 (13:38→20:10)
[2022-06-11] MEDS: Enoxaparin 40 MG/0.4 ML SYR SUBCUT SCH (20:08)
[2022-06-12 05:48] LABS: Hematocrit 34 % (35-47); Hemoglobin 11.5 g/dL (12.0-16.0); Mean Corpuscular HGB Conc 34 g/dL (31-36); Mean Corpuscular Hemoglobin 31 pg (27-31); Mean Corpuscular Volume 91 fL (80-97); Mean Platelet Volume 6.8 fL (7.4-10.4); Platelet Count 403 10^3/uL (150-450); Red Blood Count 3.77 10^6 /uL (3.70-4.87); Red Cell Distribution Width 14 % (10-15); White Blood Count 15.7 10^3/uL (3.5-10.8)
[2022-06-12 05:54] LABS: ABS Basophils 0.1 10^3/ul (0-0.2); ABS Eosinophils 0.6 10^3/ul (0-0.6); ABS Lymphocytes 1.7 10^3/ul (1.0-4.8); ABS Monocytes 1.6 10^3/ul (0-0.8); ABS Neutrophils 11.6 10^3/ul (1.5-7.7); Eosinophil % 3.7 %; Lymphocyte % 11.1 %
[2022-06-12 06:33] LABS: Calcium 8.8 mg/dL (8.6-10.3); Magnesium 2.2 mg/dL (1.9-2.7)
[2022-06-12 06:39] LABS: Phosphorus 3.4 mg/dL (2.5-5.0); eGFR CKD-EPI 84.7 (>60)
[2022-06-12] MEDS: Magnesium Hydroxide LIQ 30 ML UDC PO SCH ×2 (09:38→21:02)
[2022-06-12 11:40] LABS: Rapid COVID-19 Molecular Undetected (Undetected)
[2022-06-12] MEDS: Enoxaparin 40 MG/0.4 ML SYR SUBCUT SCH (21:25)
[2022-06-13 06:29] LABS: Calcium 8.7 mg/dL (8.6-10.3); Potassium 4.5 mmol/L (3.5-5.0); eGFR CKD-EPI 88.6 (>60)
[2022-06-13] MEDS: Magnesium Hydroxide LIQ 30 ML UDC PO SCH (08:09)
[2022-06-13 09:02] LABS: Hematocrit 32 % (35-47); Hemoglobin 10.8 g/dL (12.0-16.0); Mean Corpuscular HGB Conc 34 g/dL (31-36); Mean Corpuscular Hemoglobin 30 pg (27-31); Mean Corpuscular Volume 90 fL (80-97); Platelet Count 412 10^3/uL (150-450); Red Blood Count 3.54 10^6 /uL (3.70-4.87); Red Cell Distribution Width 14 % (10-15); White Blood Count 13.8 10^3/uL (3.5-10.8)
[2022-06-13 09:03] LABS: ABS Basophils 0.1 10^3/ul (0-0.2); ABS Eosinophils 0.7 10^3/ul (0-0.6); ABS Lymphocytes 1.4 10^3/ul (1.0-4.8); ABS Monocytes 1.6 10^3/ul (0-0.8); Eosinophil % 5.4 %; Lymphocyte % 10.2 %
[2022-06-13 11:23] VITALS: BP 120/69
== END 2022-06-13 13:00 | DRG 522 ==
LOC: EDHOLD 15:38 → ED 15:38 → OBSVTOIN 17:53 → SUATTDRO 17:53 → EDHOLD 06-08 00:46 → SSU 06-08 01:04
PROVIDERS: ADMIT Hospitalist; ATTEND Internal Medicine

== ENCOUNTER 2022-07-23 04:35 | Inpatient (IN) ==
[2022-07-23] MEDS ORDERED: Etomidate 40 mg/20 ml (2 MG/ML) 20 ml VIAL (40 mg) ONE (04:38)
[2022-07-23] MEDS ORDERED: Succinylcholine 200 mg VIAL 20 mg/ml 10 ml VIAL (200 mg) ONE (04:39)
[2022-07-23] MEDS ORDERED: Propofol 10 mg/ml 100 ML BTL 1,000 MG/100 ML BTL ONE (04:43)
[2022-07-23] MEDS ORDERED: Succinylcholine 200 mg VIAL 20 mg/ml 10 ml VIAL (200 mg) IV ONE (04:49)
[2022-07-23] MEDS ORDERED: Etomidate 20 mg/10 ml 2 MG/ML 10 ml VIAL IV ONE (04:49)
[2022-07-23] MEDS ORDERED: Propofol 10 mg/ml 100 ML BTL 1,000 MG/100 ML BTL IV SCH (05:00)
[2022-07-23 05:03] LABS: ABS Basophils 0.1 10^3/ul (0-0.2); ABS Eosinophils 0.1 10^3/ul (0-0.6); ABS Lymphocytes 3.5 10^3/ul (1.0-4.8); ABS Monocytes 0.5 10^3/ul (0-0.8); ABS Neutrophils 8.3 10^3/ul (1.5-7.7); Eosinophil % 0.7 %; Hematocrit 38 % (35-47); Hemoglobin 12.5 g/dL (12.0-16.0); Lymphocyte % 28.2 %; Mean Corpuscular HGB Conc 33 g/dL (31-36); Mean Corpuscular Hemoglobin 30 pg (27-31); Mean Corpuscular Volume 91 fL (80-97); Platelet Count 541 10^3/uL (150-450); Red Blood Count 4.23 10^6 /uL (3.70-4.87); Red Cell Distribution Width 14 % (10-15); White Blood Count 12.4 10^3/uL (3.5-10.8)
[2022-07-23 05:09] LABS: INR 1.33 (0.88-1.18)
[2022-07-23] MEDS ORDERED: Iodixanol (CONTRAST) 320 MG/ML 100 ML SDV IV ONE (05:43)
[2022-07-23 05:52] LABS: PCO2 Arterial 39 mmHg (35-45); PO2 Arterial 138 mmHg (80-100)
[2022-07-23 06:03] LABS: Albumin 3.8 g/dL (3.2-5.2); Albumin/Globulin Ratio 1.5 (1-3); Creatinine, Serum 0.66 mg/dL (0.51-0.95); Globulin 2.5 g/dL (2-4); Total Bilirubin 0.6 mg/dL (0.2-1.0); Total Protein 6.3 g/dL (6.4-8.9); eGFR CKD-EPI 85.9 (>60)
[2022-07-23 06:07] LABS: Potassium 5.5 mmol/L (3.5-5.0)
[2022-07-23 06:24] LABS: High Sensitivity Troponin 1 Hr 7 pg/mL (<15)
[2022-07-23] MEDS: Acetaminophen IV 1 GM/100ML 1,000 MG/100 ML BAG IV SCH ×2 (08:19→16:11)
[2022-07-23] MEDS ORDERED: Enoxaparin 40 MG/0.4 ML SYR SUBCUT SCH (10:00)
[2022-07-23 10:16] LABS: Creatinine, Serum 0.36 mg/dL (0.51-0.95); Potassium 3.1 mmol/L (3.5-5.0); eGFR CKD-EPI 99.4 (>60)
[2022-07-23 10:34] LABS: Calcium 6.3 mg/dL (8.6-10.3)
[2022-07-23 11:46] LABS: Urine Osmo 319 mOsm/kg (150-1150)
[2022-07-23 12:19] LABS: Urine Appearance Clear; Urine Bilirubin Negative (Negative); Urine Blood Negative (Negative); Urine Color Straw; Urine Glucose Negative (Negative); Urine Ketones Trace (Negative); Urine Nitrite Negative (Negative); Urine Protein Negative (Negative); Urine Specific Gravity 1.012 (1.002-1.030); Urine Urobilinogen Negative (Negative)
[2022-07-23 12:29] LABS: Calcium 8.5 mg/dL (8.6-10.3); Creatinine, Serum 0.49 mg/dL (0.51-0.95); Magnesium 1.3 mg/dL (1.9-2.7); Potassium 3.5 mmol/L (3.5-5.0); eGFR CKD-EPI 92.3 (>60)
[2022-07-23] MEDS ORDERED: Magnesium Sulfate 2 gm BAG 2 GM/50 ML BAG IVPB ONE (12:39)
[2022-07-23] MEDS ORDERED: Potassium Chloride LIQUID 20 MEQ/15 ML LIQUID PO ONE (12:40)
[2022-07-23 12:42] LABS: Osmolality Serum 265 mOsm/kg (275-295)
[2022-07-23] MEDS ORDERED: Morphine 2 MG/ML SYRINGE IV PRN (13:09)
[2022-07-23] MEDS ORDERED: Ondansetron 4 mg VIAL 2 MG/ML 2 ml VIAL IV ONE (13:10)
[2022-07-23] MEDS: KCL 20 MEQ/100 ML IVPREMIX 20 MEQ/100 ML BAG IV SCH ×2 (13:40→17:05)
[2022-07-23 15:34] LABS: TSH Ultra Thyroid Stim Horm 1.04 mcIU/mL (0.34-5.60)
[2022-07-23] MEDS: levETIRAcetam 1000MG IVPREMIX 1,000 MG/100 ML BAG IVPB SCH (15:40)
[2022-07-23] MEDS: Enoxaparin 60 MG/0.6 ML SYR SUBCUT SCH (17:12)
[2022-07-23 17:41] LABS: Calcium 8.2 mg/dL (8.6-10.3); Creatinine, Serum 0.46 mg/dL (0.51-0.95); Potassium 4.9 mmol/L (3.5-5.0); eGFR CKD-EPI 93.7 (>60)
[2022-07-23 23:07] LABS: Calcium 8.7 mg/dL (8.6-10.3); Creatinine, Serum 0.56 mg/dL (0.51-0.95); Potassium 4.2 mmol/L (3.5-5.0); eGFR CKD-EPI 89.4 (>60)
[2022-07-24] MEDS: Acetaminophen IV 1 GM/100ML 1,000 MG/100 ML BAG IV SCH ×4 (00:14→23:54)
[2022-07-24] MEDS: levETIRAcetam 1000MG IVPREMIX 1,000 MG/100 ML BAG IVPB SCH ×2 (03:52→15:28)
[2022-07-24 04:28] LABS: ABS Basophils 0.1 10^3/ul (0-0.2); ABS Eosinophils 0.1 10^3/ul (0-0.6); ABS Lymphocytes 2.2 10^3/ul (1.0-4.8); ABS Monocytes 1.2 10^3/ul (0-0.8); Eosinophil % 1.3 %; Hematocrit 34 % (35-47); Hemoglobin 11.6 g/dL (12.0-16.0); Lymphocyte % 20.4 %; Mean Corpuscular HGB Conc 34 g/dL (31-36); Mean Corpuscular Hemoglobin 31 pg (27-31); Mean Corpuscular Volume 90 fL (80-97); Platelet Count 370 10^3/uL (150-450); Red Cell Distribution Width 14 % (10-15); White Blood Count 10.6 10^3/uL (3.5-10.8)
[2022-07-24 04:59] LABS: Calcium 8.5 mg/dL (8.6-10.3); Creatinine, Serum 0.56 mg/dL (0.51-0.95); Potassium 4.1 mmol/L (3.5-5.0); eGFR CKD-EPI 89.4 (>60)
[2022-07-24] MEDS: Enoxaparin 60 MG/0.6 ML SYR SUBCUT SCH ×2 (05:45→18:22)
[2022-07-24] MEDS ORDERED: Lidocaine 1% MPF 5 ML VIAL INJ ONE (10:04)
[2022-07-25] MEDS: levETIRAcetam 1000MG IVPREMIX 1,000 MG/100 ML BAG IVPB SCH (01:48)
[2022-07-25] MEDS ORDERED: Cosyntropin 0.25 MG VIAL IV ONE (05:00)
[2022-07-25] MEDS: Enoxaparin 60 MG/0.6 ML SYR SUBCUT SCH ×2 (05:40→18:20)
[2022-07-25 05:54] LABS: ABS Basophils 0.1 10^3/ul (0-0.2); ABS Eosinophils 0.3 10^3/ul (0-0.6); ABS Lymphocytes 2.2 10^3/ul (1.0-4.8); ABS Neutrophils 6.8 10^3/ul (1.5-7.7); Eosinophil % 2.8 %; Hematocrit 37 % (35-47); Hemoglobin 12.1 g/dL (12.0-16.0); Lymphocyte % 21.1 %; Mean Corpuscular HGB Conc 33 g/dL (31-36); Mean Corpuscular Hemoglobin 30 pg (27-31); Mean Corpuscular Volume 90 fL (80-97); Mean Platelet Volume 7.1 fL (7.4-10.4); Platelet Count 374 10^3/uL (150-450); Red Blood Count 4.05 10^6 /uL (3.70-4.87); Red Cell Distribution Width 14 % (10-15); White Blood Count 10.3 10^3/uL (3.5-10.8)
[2022-07-25 07:13] LABS: Calcium 8.7 mg/dL (8.6-10.3); Magnesium 1.7 mg/dL (1.9-2.7); Potassium 4.1 mmol/L (3.5-5.0)
[2022-07-25 07:18] LABS: Creatinine, Serum 0.42 mg/dL (0.51-0.95); eGFR CKD-EPI 95.8 (>60)
[2022-07-25] MEDS ORDERED: Magnesium Sulfate 2 gm BAG 2 GM/50 ML BAG IVPB ONE (08:30)
[2022-07-25] MEDS: Acetaminophen IV 1 GM/100ML 1,000 MG/100 ML BAG IV SCH ×2 (10:06→15:45)
[2022-07-26] MEDS: Acetaminophen IV 1 GM/100ML 1,000 MG/100 ML BAG IV SCH ×2 (00:45→08:56)
[2022-07-26] MEDS: Enoxaparin 60 MG/0.6 ML SYR SUBCUT SCH (05:39)
[2022-07-26 06:33] LABS: ABS Eosinophils 0.2 10^3/ul (0-0.6); ABS Lymphocytes 1.4 10^3/ul (1.0-4.8); ABS Monocytes 0.7 10^3/ul (0-0.8); ABS Neutrophils 5.1 10^3/ul (1.5-7.7); Eosinophil % 2.1 %; Hematocrit 34 % (35-47); Hemoglobin 11.4 g/dL (12.0-16.0); Lymphocyte % 19.3 %; Mean Corpuscular HGB Conc 34 g/dL (31-36); Mean Corpuscular Hemoglobin 31 pg (27-31); Mean Corpuscular Volume 90 fL (80-97); Mean Platelet Volume 7.2 fL (7.4-10.4); Platelet Count 367 10^3/uL (150-450); Red Blood Count 3.74 10^6 /uL (3.70-4.87); Red Cell Distribution Width 14 % (10-15); White Blood Count 7.5 10^3/uL (3.5-10.8)
[2022-07-26 07:10] LABS: Calcium 8.6 mg/dL (8.6-10.3); Creatinine, Serum 0.48 mg/dL (0.51-0.95); Magnesium 1.8 mg/dL (1.9-2.7); Potassium 4.1 mmol/L (3.5-5.0); eGFR CKD-EPI 92.8 (>60)
[2022-07-26] MEDS ORDERED: Magnesium Sulfate 2 gm BAG 2 GM/50 ML BAG IVPB ONE (07:13)
[2022-07-26] MEDS ORDERED: levETIRAcetam IV 750 MG in NS 0.9% 100 ml BAG 100 ML IVPB ONE (11:16)
[2022-07-26 12:29] VITALS: BP 122/67
== END 2022-07-26 15:12 | disposition home or self-care (01) | DRG 645 ==
LOC: ED 04:35 → SUATTDRO 07:45 → EDHOLD 07:45 → ICU 08:44 → MEDTELE 07-24 13:49
PROVIDERS: ADMIT Internal Medicine Critical Care Medicine; ATTEND Internal Medicine

== ENCOUNTER 2023-04-04 17:32 | Inpatient (IN) ==
[2023-04-04] MEDS ORDERED: NS 0.9% 1000 ml BAG 1,000 ML IV ONE (19:08)
[2023-04-04 19:52] LABS: ABS Basophils 0.1 10^3/uL (0.0-0.1); ABS Monocytes 0.6 10^3/uL (0.0-0.9); ABS Neutrophils 10.4 10^3/uL (1.5-7.6); Hematocrit 42.5 % (35-45); Hemoglobin 14.2 g/dL (11.5-14.3); Mean Corpuscular Hemoglobin 30.2 pg (27-33); Mean Corpuscular Hgb Conc 33.3 g/dL (31-36); Mean Corpuscular Volume 90.6 fL (80-97); Mean Platelet Volume 7.7 fL (7.5-11.2); Platelet Count 300 10^3/uL (150-450); Red Blood Count 4.69 10^6/uL (3.63-4.92); Red Cell Distribution Width 15.4 % (12-17)
[2023-04-04 20:00] LABS: Albumin 4.2 g/dL (3.2-5.2); Calcium 9.8 mg/dL (8.6-10.3); Magnesium 1.6 mg/dL (1.9-2.7); Potassium 3.9 mmol/L (3.5-5.0); Total Bilirubin 0.8 mg/dL (0.2-1.0)
[2023-04-04 20:06] LABS: Albumin/Globulin Ratio 1.6 (1-3); Creatinine, Serum 0.66 mg/dL (0.51-0.95); Globulin 2.7 g/dL (2-4); Total Protein 6.9 g/dL (6.4-8.9); eGFR CKD-EPI 85.9 (>60)
[2023-04-04 20:35] LABS: Urine Appearance Clear; Urine Bilirubin Negative (Negative); Urine Blood 2+ (Negative); Urine Color Straw; Urine Glucose Negative (Negative); Urine Ketones Negative (Negative); Urine Nitrite Negative (Negative); Urine Protein Negative (Negative); Urine Specific Gravity 1.005 (1.002-1.030); Urine Urobilinogen Negative (Negative)
[2023-04-04 20:46] LABS: TSH Ultra Thyroid Stim Horm 1.32 mcIU/mL (0.34-5.60)
[2023-04-04 20:49] LABS: Urine Bacteria 1+ (Absent); Urine Red Blood Cell 3+(>10/hpf) (Absent); Urine White Blood Cell Trace(0-5/hpf) (Absent)
[2023-04-04 21:44] LABS: High Sensitivity Troponin 1 Hr 4 pg/mL (<15)
[2023-04-04] MEDS ORDERED: Magnesium Sulfate 2 gm BAG 2 GM/50 ML BAG IVPB ONE (23:56)
[2023-04-05] MEDS ORDERED: Atropine 0.1 MG/ML 10 ml SYR (1 mg) IV PUSH PRN (05:25)
[2023-04-05 06:00] LABS: ABS Basophils 0.1 10^3/uL (0.0-0.1); ABS Lymphocytes 1.2 10^3/uL (1.0-4.8); ABS Monocytes 0.8 10^3/uL (0.0-0.9); ABS Neutrophils 9.7 10^3/uL (1.5-7.6); ABS Nucleated RBC 0.01 10^3/ul; Hematocrit 39.3 % (35-45); Hemoglobin 13.3 g/dL (11.5-14.3); Lymphocyte % 9.9 %; Mean Corpuscular Hemoglobin 30.7 pg (27-33); Mean Corpuscular Hgb Conc 33.9 g/dL (31-36); Mean Corpuscular Volume 90.4 fL (80-97); Mean Platelet Volume 7.4 fL (7.5-11.2); Platelet Count 270 10^3/uL (150-450); Red Blood Count 4.34 10^6/uL (3.63-4.92); Red Cell Distribution Width 15.1 % (12-17); White Blood Count 11.8 10^3/uL (3.8-11.8)
[2023-04-05 06:26] LABS: Calcium 8.7 mg/dL (8.6-10.3); Creatinine, Serum 0.53 mg/dL (0.51-0.95); Magnesium 2.1 mg/dL (1.9-2.7); Potassium 3.5 mmol/L (3.5-5.0); eGFR CKD-EPI 90.6 (>60)
[2023-04-05] MEDS ORDERED: Sulfur Hexaflouride MICROSPHR 25 MG VIAL ONE (08:26)
[2023-04-05] MEDS ORDERED: Potassium Chloride LIQUID 20 MEQ/15 ML LIQUID PO ONE (08:30)
[2023-04-05] MEDS: Enoxaparin 80 MG/0.8 ML SYR SUBCUT SCH ×2 (11:43→22:11)
[2023-04-06 06:44] LABS: Albumin 3.3 g/dL (3.2-5.2); Albumin/Globulin Ratio 1.5 (1-3); Calcium 8.1 mg/dL (8.6-10.3); Creatinine, Serum 0.53 mg/dL (0.51-0.95); Globulin 2.2 g/dL (2-4); Magnesium 1.8 mg/dL (1.9-2.7); Potassium 3.5 mmol/L (3.5-5.0); Total Bilirubin 0.8 mg/dL (0.2-1.0); Total Protein 5.5 g/dL (6.4-8.9); eGFR CKD-EPI 90.6 (>60)
[2023-04-06] MEDS ORDERED: Magnesium Sulfate 2 gm BAG 2 GM/50 ML BAG IVPB ONE (07:46)
[2023-04-06] MEDS ORDERED: Potassium EFFERVES 25 meq TAB PO ONE (09:00)
[2023-04-06] MEDS: Enoxaparin 80 MG/0.8 ML SYR SUBCUT SCH ×2 (11:26→22:52)
[2023-04-07 06:03] LABS: ABS Basophils 0.1 10^3/uL (0.0-0.1); ABS Eosinophils 0.2 10^3/uL (0.0-0.5); ABS Lymphocytes 1.8 10^3/uL (1.0-4.8); ABS Monocytes 1.1 10^3/uL (0.0-0.9); ABS Nucleated RBC 0.01 10^3/ul; Eosinophil % 2.5 %; Hematocrit 41.3 % (35-45); Hemoglobin 13.9 g/dL (11.5-14.3); Lymphocyte % 19.4 %; Mean Corpuscular Hemoglobin 30.5 pg (27-33); Mean Corpuscular Hgb Conc 33.8 g/dL (31-36); Mean Corpuscular Volume 90.3 fL (80-97); Mean Platelet Volume 7.7 fL (7.5-11.2); Nucleated Red Blood Cells % 0.1 %/100WBC (0.0-0.8); Platelet Count 279 10^3/uL (150-450); Red Blood Count 4.57 10^6/uL (3.63-4.92); Red Cell Distribution Width 15.6 % (12-17); White Blood Count 9.2 10^3/uL (3.8-11.8)
[2023-04-07 06:18] LABS: Calcium 8.3 mg/dL (8.6-10.3); Creatinine, Serum 0.44 mg/dL (0.51-0.95); Potassium 3.6 mmol/L (3.5-5.0); eGFR CKD-EPI 94.7 (>60)
[2023-04-07] MEDS ORDERED: Potassium Chlor 20 meq TAB.ER PO ONE (06:26)
[2023-04-07] MEDS: Enoxaparin 80 MG/0.8 ML SYR SUBCUT SCH (11:22)
[2023-04-07] MEDS ORDERED: Enoxaparin 80 MG/0.8 ML SYR SUBCUT ONE (23:00)
[2023-04-08] MEDS ORDERED: Calcium Carb (TUMS) 500 mg CHEW TAB PO PRN (00:21)
[2023-04-08 05:13] LABS: ABS Eosinophils 0.2 10^3/uL (0.0-0.5); ABS Lymphocytes 1.8 10^3/uL (1.0-4.8); ABS Monocytes 1.2 10^3/uL (0.0-0.9); ABS Neutrophils 6.3 10^3/uL (1.5-7.6); Eosinophil % 2.1 %; Hematocrit 41.5 % (35-45); Hemoglobin 14.2 g/dL (11.5-14.3); Lymphocyte % 18.9 %; Mean Corpuscular Hgb Conc 34.2 g/dL (31-36); Mean Corpuscular Volume 90.6 fL (80-97); Mean Platelet Volume 7.5 fL (7.5-11.2); Platelet Count 290 10^3/uL (150-450); Red Blood Count 4.58 10^6/uL (3.63-4.92); Red Cell Distribution Width 14.9 % (12-17); White Blood Count 9.5 10^3/uL (3.8-11.8)
[2023-04-08 05:30] LABS: Calcium 8.5 mg/dL (8.6-10.3); Creatinine, Serum 0.5 mg/dL (0.51-0.95); Magnesium 1.8 mg/dL (1.9-2.7); Potassium 3.7 mmol/L (3.5-5.0); eGFR CKD-EPI 91.9 (>60)
[2023-04-08] MEDS ORDERED: Potassium Chlor 20 meq TAB.ER PO ONE (08:54)
[2023-04-08 09:26] VITALS: BP 144/87
== END 2023-04-08 08:39 | disposition short-term general hospital (02) | DRG 310 ==
LOC: ED 17:32 → EDHOLD 17:32 → ICU 04-05 03:39 → MEDTELE 04-06 23:39 → ICU 04-07 05:50
PROVIDERS: ADMIT Hospitalist; ATTEND Hospitalist

== ENCOUNTER 2023-09-18 05:53 | Observation (INO) ==
[2023-09-18] MEDS: NS 0.9% 1000 ml BAG 1,000 ML IV ONE (06:40)
[2023-09-18 06:49] LABS: Urine Appearance Extra Turbid; Urine Bilirubin Negative (Negative); Urine Blood 2+ (Negative); Urine Glucose Negative (Negative); Urine Ketones Negative (Negative); Urine Nitrite Negative (Negative); Urine Protein 1+ (>=30 mg/dL) (Negative); Urine Urobilinogen Negative (Negative)
[2023-09-18 06:58] LABS: High Sens Troponin Baseline 35 pg/mL (<15)
[2023-09-18 07:21] LABS: ALT 25 U/L (7-52); Albumin 3.9 g/dL (3.2-5.2); Albumin/Globulin Ratio 1.4 (1-3); Alkaline Phosphatase 70 U/L (35-149); Anion Gap 10 mmol/L (2-16); Blood Urea Nitrogen 15 mg/dL (6-24); CO2 Carbon Dioxide 27 mmol/L (22-32); Calcium 9.8 mg/dL (8.6-10.3); Chloride 99 mmol/L (101-111); Creatinine, Serum 0.77 mg/dL (0.51-0.95); Globulin 2.7 g/dL (2-4); Glucose 121 mg/dL (70-100); Sodium 136 mmol/L (135-145); Total Bilirubin 0.8 mg/dL (0.2-1.0); Total Protein 6.6 g/dL (6.4-8.9); eGFR CKD-EPI 75.1 (>60)
[2023-09-18 07:31] LABS: Urine Amorphous Crystals Present /HPF (Absent); Urine Bacteria 3+ /HPF (Absent); Urine Red Blood Cell 3+(>10/hpf) /HPF (0-Trace); Urine Renal Epithelial Cells Present /HPF (Absent); Urine White Blood Cell 3+(>20/hpf) /HPF (0-Trace)
[2023-09-18 07:36] LABS: Free T4 1.11 ng/dL (0.61-1.12); TSH Ultra Thyroid Stim Horm 1.66 mcIU/mL (0.34-5.60)
[2023-09-18 07:43] LABS: Venous Bicarbonate HCO3 26.6 mmol/L (24-28)
[2023-09-18 07:48] LABS: ABS Lymphocytes 0.5 10^3/uL (1.0-4.8); ABS Neutrophils 6.5 10^3/uL (1.5-7.6); ABS Nucleated RBC 0.01 10^3/ul; Eosinophil % 0.4 %; Hematocrit 41.1 % (35-45); Hemoglobin 13.9 g/dL (11.5-14.3); Lymphocyte % 6.7 %; Mean Corpuscular Hgb Conc 33.7 g/dL (31-36); Mean Platelet Volume 8.1 fL (7.5-11.2); Nucleated Red Blood Cells % 0.1 %/100WBC (0.0-0.8); Platelet Count 244 10^3/uL (150-450); Red Blood Count 4.46 10^6/uL (3.63-4.92); Red Cell Distribution Width 13.9 % (12-17); White Blood Count 7.1 10^3/uL (3.8-11.8)
[2023-09-18 07:55] LABS: Urine Color Yellow
[2023-09-18] MEDS: Piperacillin/Tazobac 3.375 BAG 3.375 GM/100 ML BAG IV ONE (08:24)
[2023-09-18] MEDS: NORMOSOL-R pH 7.4 1000 mL BAG 1,000 ML IV SCH (08:25)
[2023-09-18 08:30] LABS: High Sensitivity Troponin 1 Hr 161 pg/mL (<15); Magnesium 1.3 mg/dL (1.9-2.7)
[2023-09-18 08:57] LABS: Potassium, Whole Blood 2.8 mmol/L (3.4-4.5)
[2023-09-18] MEDS: Potassium Chloride LIQUID 20 MEQ/15 ML LIQUID PO ONE (09:43)
[2023-09-18] MEDS: Magnesium Sulfate 2 gm BAG 2 GM/50 ML BAG IVPB ONE (09:45)
[2023-09-18] MEDS: KCL 20 MEQ/100 ML IVPREMIX 20 MEQ/100 ML BAG IV SCH (09:45)
[2023-09-18 09:46] LABS: Potassium Redraw 3.2 mmol/L (3.5-5.0)
[2023-09-18] MEDS ORDERED: Polyethylene Glycol 3350 17 GM PACKET PO PRN (09:49)
[2023-09-18] MEDS ORDERED: Senna TAB 8.6 mg TAB PO PRN (09:49)
[2023-09-18] MEDS ORDERED: Ondansetron 4 mg VIAL 2 MG/ML 2 ml VIAL IV PRN (09:49)
[2023-09-18] MEDS: NS 0.9% 1000 ml BAG 1,000 ML IV SCH (10:06)
[2023-09-18] MEDS ORDERED: Zosyn per Pharmacy NOTE FOLLOW UP SCH (18:00)
[2023-09-18] MEDS: ZOSYN 3.375 GM x ONE DOSE over 30 miuntes IV (20:34)
[2023-09-19] MEDS: ZOSYN 3.375 GM Q8H per EXTENDED INFUSION IV SCH (00:35)
[2023-09-19 11:34] LABS: Calcium 8.5 mg/dL (8.6-10.3); Creatinine, Serum 0.84 mg/dL (0.51-0.95); eGFR CKD-EPI 67.6 (>60)
[2023-09-19 13:39] VITALS: BP 128/86
== END 2023-09-19 15:25 | disposition home or self-care (01) ==
LOC: ED 05:53 → EDHOLD 05:53 → MED 11:56
PROVIDERS: ADMIT Internal Medicine; ATTEND Internal Medicine